=== PATIENT | male | born 1985 | race African-American/Black ===

== ENCOUNTER 2022-01-21 15:02 | Emergency (ER) | payer MEDICARE, MEDICAID, SELFPAY ==
[2022-01-21 15:27] VITALS: BP 145/76; PULSE 94; RESP 22; TEMP 36.7; O2SAT 100
[2022-01-21 15:52] LABS: Amorphous Sediment Urine 3+; RBC Urine None Seen (0-5/HPF); WBC Urine None Seen (0-5/HPF)
[2022-01-21 15:53] LABS: Bacteria Urine None Seen; Culture Indicated Urine Cult Not Indicated
--- NOTE | 2022-01-21 18:57 | ED_ITS ---
HPI - Skin/Abscess/Foreign Bdy <Reddy Matias PA-C - Last Filed: 01/21/22 19:46> General Chief complaint: Skin/Abscess/Foreign Body Stated complaint: COMPLICATION FROM MEDCATION FACE ISSUES VOMITING Time Seen by Provider: 01/21/22 18:57 Source: patient Mode of arrival: Wheelchair History of Present Illness HPI narrative: 36-year-old male with past medical history presents to the ED with 1 day of facial rash. Patient states that he was started on Suboxone for muscular pain due to cerebral palsy, after his 1st does started developing a itching, burning rash on the lower half of his face bilaterally. Patient denies throat swelling, trouble breathing, shortness of breath, wheezing, nausea, vomiting, abdominal pain. Patient was seen at [facility] earlier today for the same complaint, steroid cream was applied to his face and he was discharged. Patient states that his symptoms have not improved since then. Patient is also almost NPO with a G tube due to his cerebral palsy, and is unable to take p.o. medications. Related Data Previous Rx's Medication Instructions Recorded prednisone 20 mg tablet 40 mg PO DAILY 5 Days #10 tab 01/21/22 Review of Systems <Reddy Matias PA-C - Last Filed: 01/21/22 19:46> Review of Systems ROS Unobtainable: All systems reviewed & are unremarkable except as noted in HPI and below Constitutional Constitutional: Denies chills, Denies fatigue, Denies fever(s), Denies frequent falls, Denies lethargy and Denies weakness Eyes Eyes: Denies change in vision, Denies eye discharge, Denies irritation and Denies loss of vision ENT Ears, Nose, Mouth, and Throat: Denies change in voice, Denies dizziness, Denies neck pain, Denies sore throat and Denies throat swelling Cardiovascular Cardiovascular: Denies chest pain, Denies irregular heart rhythm, Denies lightheadedness, Denies palpitations, Denies dyspnea, Denies dyspnea on exertion and Denies orthopnea Respiratory Respiratory: Denies cough, Denies dyspnea, Denies dyspnea on exertion and Denies wheezing Gastrointestinal Gastrointestinal: Denies abdominal pain, Denies change in bowel habits, Denies diarrhea, Denies nausea and Denies vomiting Genitourinary Genitourinary: Denies hematuria, Denies flank pain, Denies urinary incontinence and Denies urinary urgency Musculoskeletal Musculoskeletal: Denies back pain, Denies muscle weakness, Denies neck pain, Denies numbness and Denies tingling Integumentary/Breasts Skin/Breast: Denies pruritus, Denies erythema, Reports rash and Denies wounds Neurologic Neurologic: Denies behavioral changes, Denies confusion, Denies dizziness, Denies frequent falls, Denies loss of vision, Denies numbness, Denies tingling and Denies weakness Psychiatric Psychiatric: Denies anxiety, Denies behavioral changes, Denies confusion, Denies depression, Denies homicidal ideation and Denies suicidal ideation Endocrine Endocrine: Denies fatigue, Denies flushing and Denies palpitations Hematologic/Lymphatic Hematologic/Lymphatic: Denies easy bruising Allergic/Immunologic Allergic/Immunologic: Denies urticaria, Denies throat swelling and Denies wheezing Patient History <Reddy Matias PA-C - Last Filed: 01/21/22 19:46> Social History Smoking Status: Current every day smoker Smoking Status: Current every day smoker Exam <Reddy Matias PA-C - Last Filed: 01/21/22 19:46> Initial Vital Signs Initial Vital Signs: Vital Signs Temperature 98.1 F 01/21/22 15:27 Pulse Rate 94 H 01/21/22 15:27 Respiratory Rate 22 01/21/22 15:27 Blood Pressure 145/76 H 01/21/22 15:27 Pulse Oximetry 100 01/21/22 15:27 Const General: cooperative, healthy appearing and comfortable [facility] Head: normal to inspection and normocephalic Ears: hearing grossly normal bilaterally Nose: external nose normal Face and sinus: normal facial exam Mouth: oral mucosae normal Teeth and gingiva: poor dentition Throat: posterior oropharynx normal Neck Neck: normal visual inspection and full ROM Resp Effort & Inspection: normal respiratory effort Auscultation: clear to auscultation bilaterally Cardio Rate: regular rate Rhythm: regular rhythm GI Palpation: soft Skin Other: Lower half of the phase with mild erythema, scaling. No signs of infection. Oral mucosa appears normal. Poor dentition Neuro General: patient alert, patient awake and patient oriented x3 Other: Patient is wheelchair-bound due to cerebral palsy which is baseline Psych Appearance: grossly normal Mental Status: mental status grossly normal <Sis Botnick, DO - Last Filed: 01/23/22 08:00> Initial Vital Signs Initial Vital Signs: Vital Signs Temperature 98.1 F 01/21/22 15:27 Pulse Rate 94 H 01/21/22 15:27 Respiratory Rate 22 01/21/22 15:27 Blood Pressure 145/76 H 01/21/22 15:27 Pulse Oximetry 100 01/21/22 15:27 Course <Reddy Matias PA-C - Last Filed: 01/21/22 19:46> Orders Ordered: Discontinued Medications Dexamethasone (Dexamethasone 10 Mg/Ml Vial) 20 mg INJ INTRA-OP ONE Stop: 01/21/22 19:12 Last Admin: 01/21/22 19:38 Dose: Not Given Documented by: CINDY Vital Signs Vital signs: Vital Signs - 8 hr 01/21/22 15:27 Temperature 98.1 F Pulse Rate 94 H Respiratory Rate 22 Blood Pressure 145/76 H Pulse Oximetry 100 <Sis Claros DO - Last Filed: 01/23/22 08:00> Orders Ordered: Discontinued Medications Dexamethasone (Dexamethasone 10 Mg/Ml Vial) 20 mg INJ INTRA-OP ONE Stop: 01/21/22 19:12 Last Admin: 01/21/22 19:38 Dose: Not Given Documented by: CINDY Vital Signs Vital signs: Vital Signs - 8 hr 01/21/22 15:27 Temperature 98.1 F Pulse Rate 94 H Respiratory Rate 22 Blood Pressure 145/76 H Pulse Oximetry 100 MDM - Skin/Abscess/Foreign Bdy <TIAN Chapman Last Filed: 01/21/22 19:46> Lab Data Labs: Lab Results 01/21/22 Range/Units 15:15 Urine RBC None seen (0-5/HPF) Urine WBC None seen (0-5/HPF) Amorphous Sediment 3+ Urine Bacteria None seen (None) Ur Culture Indicated? Cult not indicated Urine Dip Bedside Urine Glucose Negative Bedside Urine Bilirubin - Negative Bedside Urine Ketone - Negative Urine Specific [place] 1.010 Bedside Urine Occult Blood - Negative Bedside Urine pH 7.5 Bedside Urine Protein - Negative Bedside Urine Urobilinogen 0.2 Bedside Urine Nitrite - Negative Bedside Urine Leukocytes +/- 15 Esterase MDM Narrative Medical decision making narrative: 36-year-old male with past medical history presents to the ED with 1 day of facial rash. Concern for allergic reaction versus rash. Will treat with IM inj ection of dexamethasone. Patient will follow-up with his PCP tomorrow. ED return precautions discussed with patient. Patient verbalizes understanding. <Sis Claros DO - Last Filed: 01/23/22 08:00> Lab Data Labs: Lab Results 01/21/22 Range/Units 15:15 Urine RBC None seen (0-5/HPF) Urine WBC None seen (0-5/HPF) Amorphous Sediment 3+ Urine Bacteria None seen (None) Ur Culture Indicated? Cult not indicated Urine Dip Bedside Urine Glucose Negative Bedside Urine Bilirubin - Negative Bedside Urine Ketone - Negative Urine Specific [place] 1.010 Bedside Urine Occult Blood - Negative Bedside Urine pH 7.5 Bedside Urine Protein - Negative Bedside Urine Urobilinogen 0.2 Bedside Urine Nitrite - Negative Bedside Urine Leukocytes +/- 15 Esterase Discharge Plan Departure Patient Disposition: Home Clinical Impression: Rash Instructions: DI for Rash Activity Restrictions/Additional Instructions: You were evaluated for a facial rash following a dose of Suboxone. It is likely that your symptoms were caused due to an allergic reaction. You may take the prednisone for your symptoms. Please follow-up with your PCP as soon as possible. Please discontinue the Suboxone. Return to the ED if you have any trouble breathing, throat tightness, throat swelling, wheezing, nausea, vomiting. Prescriptions: New prednisone 20 mg tablet 40 mg PO DAILY 5 Days Qty: 10 0RF <Sis Claros DO - Last Filed: 01/23/22 08:00> Cosign ED Attending Atul Attestation: I was immediately available in the department for consultation. Documentation has been reviewed. I agree with assessment and plan.
== END 2022-01-21 19:55 | disposition home or self-care (01) ==
PROVIDERS: Emergency Medicine; Emergency Provider Student in an Organized Health Care Education/Training Program
DX: R21 Rash and other nonspecific skin eruption (principal); F17.200 Nicotine dependence, unspecified, uncomplicated
CPT/HCPCS: 81003; 81015; 99281; 99282

== ENCOUNTER 2024-08-12 13:45 | Outpatient (RCR) | payer MEDICARE, MEDICAID, SELFPAY ==
--- NOTE | 2024-02-04 15:45 | OT.OP.EVAL ---
Visit Care Team Role Provider Type TRACY Cano Attending Provider Non-Staff Family Provider Primary Care Provider Referring Provider Specialty: Nursing Address: [facility] [address], [place], [address] Email: Occupational Therapy Initial Evaluation OT Outpatient Adult Evaluation Start: 02/05/24 07:45 Freq: Status: Active Protocol: Document 02/04/24 15:45 AMS (Rec: 02/05/24 08:20 AMS [id number]) General Information - Adult Visit Number 10/01; 10/10; 19 visits -> KX 20th visit Plan of Care Dates 02/04/24 - 03/17/24 Insurance Information Medicare; KX modifier after 19 visits PCY Visit Start Time 10:30 Visit Stop Time 11:25 Treatment Setting Outpatient Care Note Type Initial Evaluation Referring Physician MABEL Cano Reason for Referral Cerebral palsy Precautions None listed Identification Confirmed Yes Goals Real Estate Legal Assistant Goals 1. Mynor will be modified independent with home exercise program utilizing provided written and visual instructions as needed. Assessment/Plan Treatment Assessment Hernan ('Mynor' or 'Wheels') is 38 y.o.; he was referred to OT by family nurse practitioner for cerebral palsy and to address sensory processing. Medical history is significant for: paraplegia; anxiety; ADD/ADHD; memory loss/dementia ; depression; dizziness; falls ; hearing problems; back/neck/ jaw pain; neuropathy; seizures ; ASD; TBI/concussion; vision problems; sensory modulation disorder. He reports h/o falls and pressure sores. Medications prescribed are for pain and to address tone/ rigidity. Whole Body Pain Assessment Grid completed; indication of 8 out of 10 on the pain scale relative to lower extremities and trunk. Wrist/Hand Pain Assessment Grid completed; indication of 10 out of 10 on the pain scale relative to dorsal/volar surfaces of both hands/wrists. QuickDASH UE Outcome Measure Score = 84.09. QuickDASH Work Module Score (Knitting Teacher Volunteer; walking service dog ) = 75.00. QuickDASH Sports/ Performing Arts Module Score ( Percussion Musician Dystonion) = 100.00. Mynor has an electric w/c; he also has a light/titanium based manual w/c; he presented in reported Proxamaaner manual w/c . Mynor has 65 cm yoga/therapy ball (x 2), sensory clouds ( crash pads), peanutballs, and a rainbow swing from [facility]. He has a smart home set-up thru [facility] for lighting. He is seeking smart home set-up for entering and exiting the home . He is ambidexturous; he uses R hand for manuevering judie stick of electric w/c; L hand for handwriting and for holding leash for walking of therapy dog. He indicated that he needs varying degrees of assist in the home (sometimes no assist, other times max assist); he denied having any assist/caregivers. He does have a shower chair and has interest in andrew development. He uses paratransit and has interest in hippotherapy. He presented in barefoot toe shoes, although, they did not fit onto heels. Foundry Process Engineer strength of R hand obtained w/ elbow ext, forearm pronation = 32.0# of force; executive kitchen manager strength of L hand obtained w/ elbow ext, forearm in neutral = 3.0# of force. Able to transfer to peanutball w/ SBA w/ use of TT to support maintenance of balance; reliance on UEs w/ sitting balance without feet resting on floor. Further assessment is needed in order to establish appropriate goals . Length of treatment (weeks) 6 Plan of Care Start Date 02/04/24 Plan of Care End Date 03/17/24 Treatment Frequency Once a Week Therapeutic Contents Active Range of Motion, Adaptive Equipment Education, Functional Activities,Home Exercise Program,Joint Protection,Manual Therapy, Education,Neurodevelopment Treatment,Neuromuscular Re- Education,Self-Care,Stretching /Flexibility Activities, Therapeutic Activities, Therapeutic Exercises
--- NOTE | 2024-02-09 15:53 | OT.OP.TRT ---
Visit Care Team Role Provider Type TRACY Cano Attending Provider Non-Staff Family Provider Primary Care Provider Referring Provider Specialty: Nursing Address: [facility] [address], [place], [address] Email: Occupational Therapy Treatment Note OT Outpatient Treatment Note - Adult Start: 02/05/24 07:45 Freq: Status: Active Protocol: Document 02/09/24 15:40 AMS (Rec: 02/09/24 15:53 AMS [id number]) OT Outpatient Adult Treatment Note Session Time Visit Start Time 13:48 Visit Stop Time 14:28 Visit Information Visit Number 11/01; 11/10; 19 visits -> KX 20th visit Plan of Care Dates 02/04/24 - 03/17/24 Insurance Information Medicare; KX modifier after 19 visits PCY Setting Treatment Setting Outpatient Care Visit Type Note Type Treatment Note General Information General Information Hernan ('Mynor' or 'Wheels') is 38 y.o.; he was referred to OT by family nurse practitioner for cerebral palsy and to address sensory processing. Medical history is significant for: paraplegia; anxiety; ADD/ADHD; memory loss/dementia ; depression; dizziness; falls ; hearing problems; back/neck/ jaw pain; neuropathy; seizures ; ASD; TBI/concussion; vision problems; sensory modulation disorder. He reports h/o falls and pressure sores. - Subjective Identification Type Name Observations 'Mynor'/'Wheels' presented in [email or web address] w/c. R handed control - Objective Objective Measurements Please refer to below for progress towards established OT goals: R side tone fluctuations. Apprenticeship Representative Goals 1. Mynor will be modified independent with home exercise program utilizing provided written and visual instructions as needed. - Treatment 1 Descriptor ROM/Sensory feedback. Peanutball. Sea-stars. Red bolster swing. Red bolster at mat level. - Assessment Assessment of Improvement 'Mynor' reported that he executes ROM exercises 2-15 times per day depending on tone. He presented in [email or web address] w/c; R handed control w/ pressure relief. Report of broken cup boswell, broken lap table attachment and need for head cushion to be fixed. Fluctuating tone of the L side of body. No change in positioning of UEs related to turning of head; primarily head turn to R noted. Able to assist w/ positioning of R LE into abduction in order to sit on red bolster. Inconsistent w/ weight bearing; increased weight bearing thru L UE. (-) ranging of UE's above 90 degrees w/ flex or abduction observed within functional changes in position. - Plan Therapy Recommendations Advance per Rehabilitation Protocol
--- NOTE | 2024-02-18 16:00 | OT.OP.TRT ---
Visit Care Team Role Provider Type TRACY Cano Attending Provider Non-Staff Family Provider Primary Care Provider Referring Provider Specialty: Nursing Address: [facility] [address], [place], [address] Email: Occupational Therapy Treatment Note OT Outpatient Treatment Note - Adult Start: 02/05/24 07:45 Freq: Status: Active Protocol: Document 02/18/24 16:00 AMS (Rec: 02/19/24 10:39 AMS [id number]) OT Outpatient Adult Treatment Note Session Time Visit Start Time 11:18 Visit Stop Time 11:58 Visit Information Visit Number 11/01; 11/10; 19 visits -> KX 20th visit Plan of Care Dates 02/04/24 - 03/17/24 Insurance Information Medicare; KX modifier after 19 visits PCY Setting Treatment Setting Outpatient Care Visit Type Note Type Treatment Note General Information General Information Hernan ('Mynor' or 'Wheels') is 38 y.o.; he was referred to OT by family nurse practitioner for cerebral palsy and to address sensory processing. Medical history is significant for: paraplegia; anxiety; ADD/ADHD; memory loss/dementia ; depression; dizziness; falls ; hearing problems; back/neck/ jaw pain; neuropathy; seizures ; ASD; TBI/concussion; vision problems; sensory modulation disorder. He reports h/o falls and pressure sores. - Subjective Identification Type Name Observations 'Mynor'/'Wheels' presented in [employer] w/c. R handed control - Objective Objective Measurements Please refer to below for progress towards established OT goals: R side tone fluctuations. Down Filler Goals 1. Myonr will be modified independent with home exercise program utilizing provided written and visual instructions as needed. - Treatment 1 Descriptor ROM/Sensory feedback. Peanutball. Red bolster swing. Red bolster at mat level. Yoga ball. - Assessment Assessment of Improvement 'Mynor' reported that he executes ROM exercises 2-15 times per day depending on tone. He presented in [employer] w/c; R handed control w/ pressure relief. Report of broken cup boswell, broken lap table attachment and need for head cushion to be fixed. Fluctuating tone of the R side of body impacting functional movements; R LE scissoring L LE in tall kneeling w/ use of large peanutball w/ rotation R hip. No change in positioning of UEs related to turning of head ; primarily head turn to R noted. (-) ranging of UE's above 90 degrees w/ flex or abduction observed within functional changes in position . Would like to collaborate w/ outpatient w/c specialist. - Plan Therapy Recommendations Advance per Rehabilitation Protocol
--- NOTE | 2024-02-25 14:03 | OT.OP.TRT ---
Visit Care Team Role Provider Type TRACY Cano Attending Provider Non-Staff Family Provider Primary Care Provider Referring Provider Specialty: Nursing Address: [facility] [address], [place], [address] Email: Occupational Therapy Treatment Note OT Outpatient Treatment Note - Adult Start: 02/05/24 07:45 Freq: Status: Active Protocol: Document 02/25/24 13:55 AMS (Rec: 02/25/24 14:03 AMS [id number]) OT Outpatient Adult Treatment Note Session Time Visit Start Time 11:25 Visit Stop Time 11:58 Visit Information Visit Number 11/29; 12/08; 19 visits -> KX visit Plan of Care Dates 02/04/24 - 03/17/24 Insurance Information Medicare; KX modifier after 19 visits PCY Setting Treatment Setting Outpatient Care Visit Type Note Type Treatment Note General Information General Information Hernan ('Mynor' or 'Wheels') is 38 y.o.; he was referred to OT by family nurse practitioner for cerebral palsy and to address sensory processing. Medical history is significant for: paraplegia; anxiety; ADD/ADHD; memory loss/dementia ; depression; dizziness; falls ; hearing problems; back/neck/ jaw pain; neuropathy; seizures ; ASD; TBI/concussion; vision problems; sensory modulation disorder. He reports h/o falls and pressure sores. - Subjective Identification Type Name Observations (-) locking of bilateral manual w/c breaks prior to transfer out of w/c. Hernan was accompanied by Rice, a friend. Has standard, manual w/c. No difficulties observed w/ gripping wheels in order to propel. Efficient and symmetrical bilateral grasping and propulsion of wheels of manual w/c. Increased difficulty locking R w/c break . Has personal electric w/c. R handed control. - Objective Objective Measurements Please refer to below for progress towards established OT goals: R side tone fluctuations. Nursing Home Goals 1. Mynor will be modified independent with home exercise program utilizing provided written and visual instructions as needed. - Treatment 1 Descriptor ROM/Sensory feedback. Peanutball. Red bolster swing. Red bolster at mat level. Yoga ball. - Assessment Assessment of Improvement 'Mynor' reported that he executes ROM exercises 2-15 times per day depending on tone. Presented in personal manual w/c. Efficient and symmetrical bilateral grasping and propulsion of wheels of manual w/c; increased difficulty locking R w/c break . Hernan verbalized awareness of difficulty w/ locking of R w/c break. Fluctuating tone of primarily R side of body (-) R LE scissoring L LE in tall kneeling noted w/ use of large peanutball. Inconsistencies w / UE and LE tone noted w/ changing of positions. 'Mynor' or 'Wheels' would like to collaborate w/ outpatient w/c specialist. - Plan Therapy Recommendations Advance per Rehabilitation Protocol
--- NOTE | 2024-03-03 12:24 | OT.OP.TRT ---
Visit Care Team Role Provider Type TRACY Cano Attending Provider Non-Staff Family Provider Primary Care Provider Referring Provider Specialty: Nursing Address: [facility] [address], [place], [address] Email: Occupational Therapy Treatment Note OT Outpatient Treatment Note - Adult Start: 02/05/24 07:45 Freq: Status: Active Protocol: Document 03/03/24 12:18 AMS (Rec: 03/03/24 12:24 AMS [id number]) OT Outpatient Adult Treatment Note Session Time Visit Start Time 11:15 Visit Stop Time 11:58 Visit Information Visit Number 12/30; 01/08; 19 visits -> KX 20th visit Plan of Care Dates 02/04/24 - 03/17/24 Insurance Information Medicare; KX modifier after 19 visits PCY Setting Treatment Setting Outpatient Care Visit Type Note Type Treatment Note General Information General Information Hernan ('Mynor' or 'Wheels') is 38 y.o.; he was referred to OT by family nurse practitioner for cerebral palsy and to address sensory processing. Medical history is significant for: paraplegia; anxiety; ADD/ADHD; memory loss/dementia ; depression; dizziness; falls ; hearing problems; back/neck/ jaw pain; neuropathy; seizures ; ASD; TBI/concussion; vision problems; sensory modulation disorder. He reports h/o falls and pressure sores. - Subjective Identification Type Name Observations (-) locking of bilateral manual w/c breaks prior to transfer out of w/c. Hernan was accompanied by Rice, a friend. Has standard, manual w/c. No difficulties observed w/ gripping wheels in order to propel. Efficient and symmetrical bilateral grasping and propulsion of wheels of manual w/c. Increased difficulty locking R w/c break . Has personal electric w/c. R handed control. - Objective Objective Measurements Please refer to below for progress towards established OT goals: R side tone fluctuations. Group Home Goals 1. Mynor will be modified independent with home exercise program utilizing provided written and visual instructions as needed. - Treatment 1 Descriptor ROM/Sensory feedback. Peanutball. Red bolster swing. Red bolster at mat level. Yoga ball. - Assessment Assessment of Improvement 'Mynor' reported that he executes ROM exercises 2-15 times per day depending on tone. Presented in personal manual w/c. Efficient and symmetrical bilateral grasping and propulsion of wheels of manual w/c; decreased ability to effectively lock R w/c brake of manual w/c; clinician assist for stabilizing w/c w/ transfer from floor -> w/c. Fluctuating tone of primarily R side of body (-) R LE scissoring L LE in tall kneeling noted w/ use of yoga ball. Inconsistencies w/ UE and LE tone noted w/ changing of positions. Contralateral UE stabilization on arm rest w/ balloon; observed to hit balloon w/ dorsum of hand/ wrist and palmar surface bilaterally. (-) ability to weight shift L -> R weight shift prone on ball; positioning of R wrist in flexion w/ attempt. Trialed frontal positioning of bolster for active B UE weight bearing; unsuccessful w/ this activity ('Mynor' denied ability to motor execute plan elbow flex/ext w/ body in this position). 'Mynor' or 'Wheels' would like to collaborate w/ outpatient w/c specialist. - Plan Therapy Recommendations Advance per Rehabilitation Protocol
--- NOTE | 2024-03-10 13:01 | OT.OP.TRT ---
Visit Care Team Role Provider Type TRACY Cano Attending Provider Non-Staff Family Provider Primary Care Provider Referring Provider Specialty: Nursing Address: [facility] [address], [place], [address] Email: Occupational Therapy Treatment Note OT Outpatient Treatment Note - Adult Start: 02/05/24 07:45 Freq: Status: Active Protocol: Document 03/10/24 12:56 AMS (Rec: 03/10/24 13:01 AMS [id number]) OT Outpatient Adult Treatment Note Session Time Visit Start Time 11:15 Visit Stop Time 11:58 Visit Information Visit Number 01/29; 02/07; visits -> KX 20th visit Plan of Care Dates 02/04/24 - 03/17/24 Insurance Information Medicare; KX modifier after 19 visits PCY Setting Treatment Setting Outpatient Care Visit Type Note Type Treatment Note General Information General Information Hernan ('Mynor' or 'Wheels') is 38 y.o.; he was referred to OT by family nurse practitioner for cerebral palsy and to address sensory processing. Medical history is significant for: paraplegia; anxiety; ADD/ADHD; memory loss/dementia ; depression; dizziness; falls ; hearing problems; back/neck/ jaw pain; neuropathy; seizures ; ASD; TBI/concussion; vision problems; sensory modulation disorder. He reports h/o falls and pressure sores. - Subjective Identification Type Name Observations Hernan was accompanied by Rice, a friend. Has standard, manual w/c. No difficulties observed w/ gripping wheels in order to propel. Efficient and symmetrical bilateral grasping and propulsion of wheels of manual w/c. Increased difficulty locking R w/c break . Has personal electric w/c. R handed control. - Objective Objective Measurements Please refer to below for progress towards established OT goals: R side tone fluctuations. Wine Bottle Inspector Goals 1. Mynor will be modified independent with home exercise program utilizing provided written and visual instructions as needed. - Treatment 1 Descriptor ROM/Sensory feedback. Yoga ball. Cane. Suspended ball. - Assessment Assessment of Improvement 'Mynor' reported that he executes ROM exercises 2-15 times per day depending on tone. Presented in personal manual w/c. Efficient and symmetrical bilateral grasping and propulsion of wheels of manual w/c; decreased ability to effectively lock R w/c brake of manual w/c; clinician assist for stabilizing yoga ball w/ transfer from floor -> w/c. Fluctuating tone of primarily R side of body (-) R LE scissoring L LE in tall kneeling noted w/ use of yoga ball, yet, decreased anchoring of R knee to floor primarily between activities. Trialed WB w/ R hand grasping wrist; able to sustain R handed grasp in this position. Inconsistencies w/ sh flex in supported tall kneeling. Cueing to support bilateral coordination w/ crossing of midline modified cane balloon baseball. Good eye-hand coordination w/ balloon, bilateral cane, and suspended ball overall; increased reliance on R UE w/ suspended ball w/ resting of head on heel of L hand on ball; increased reliance on R UE likely influenced by objects/ positioning of self within environment. 'Mynor' or 'Wheels' would like to collaborate w/ outpatient w/c specialist. - Plan Therapy Recommendations Advance per Rehabilitation Protocol
--- NOTE | 2024-03-17 15:53 | OT.OPPOC ---
Physical, Occupational & Speech Therapy At [facility] Hernan Harvey [id number] 1985 Visit Care Team Role Provider Type TRACY Cano Attending Provider Non-Staff Family Provider Primary Care Provider Referring Provider Address: [facility] [address], [place], [address] Occupational Therapy Plan of Care OT Outpatient Adult Evaluation Start: 02/05/24 07:45 Freq: Status: Active Protocol: Document 02/04/24 15:45 AMS (Rec: 02/05/24 08:20 AMS [id number]) General Information - Adult Visit Information Visit Number 10/01; 10/10; 19 visits -> KX 20th visit Plan of Care Dates 02/04/24 - 03/17/24 Insurance Information Medicare; KX modifier after 19 visits PCY Session Time Visit Start Time 10:30 Visit Stop Time 11:25 Setting Treatment Setting Outpatient Care Visit Type Note Type Initial Evaluation Referral Referring Physician MABEL Cano Reason for Referral Cerebral palsy Precautions None listed Identification Identification Confirmed Yes Goals Mcfp Goals Mcfp Goals 1. Mynor will be modified independent with home exercise program utilizing provided written and visual instructions as needed. Assessment/Plan Assessment Treatment Assessment Hernan ('Mynor' or 'Wheels') is 38 y.o.; he was referred to OT by family nurse practitioner for cerebral palsy and to address sensory processing. Medical history is significant for: paraplegia; anxiety; ADD/ADHD; memory loss/dementia ; depression; dizziness; falls ; hearing problems; back/neck/ jaw pain; neuropathy; seizures ; ASD; TBI/concussion; vision problems; sensory modulation disorder. He reports h/o falls and pressure sores. Medications prescribed are for pain and to address tone/ rigidity. Whole Body Pain Assessment Grid completed; indication of 8 out of 10 on the pain scale relative to lower extremities and trunk. Wrist/Hand Pain Assessment Grid completed; indication of 10 out of 10 on the pain scale relative to dorsal/volar surfaces of both hands/wrists. QuickDASH UE Outcome Measure Score = 84.09. QuickDASH Work Module Score (Teacher Of The Deaf/Hard Of Hearing Volunteer; walking service dog ) = 75.00. QuickDASH Sports/ Performing Arts Module Score ( Percussion Musician Dystonion) = 100.00. Mynor has an electric w/c; he also has a light/titanium based manual w/c; he presented in reported loaner manual w/c . Mynor has 65 cm yoga/therapy ball (x 2), sensory clouds ( crash pads), peanutballs, and a rainbow swing from [facility]. He has a smart home set-up thru [facility] for lighting. He is seeking smart home set-up for entering and exiting the home . He is ambidexturous; he uses R hand for manuevering judie stick of electric w/c; L hand for handwriting and for holding leash for walking of therapy dog. He indicated that he needs varying degrees of assist in the home (sometimes no assist, other times max assist); he denied having any assist/caregivers. He does have a shower chair and has interest in andrew development. He uses paratransit and has interest in hippotherapy. He presented in barefoot toe shoes, although, they did not fit onto heels. Advertising Campaign Manager strength of R hand obtained w/ elbow ext, forearm pronation = 32.0# of force; retail special event associate strength of L hand obtained w/ elbow ext, forearm in neutral = 3.0# of force. Able to transfer to peanutball w/ SBA w/ use of TT to support maintenance of balance; reliance on UEs w/ sitting balance without feet resting on floor. Further assessment is needed in order to establish appropriate goals . Plan Length of treatment (weeks) 6 Plan of Care Start Date 02/04/24 Plan of Care End Date 03/17/24 Treatment Frequency Once a Week Therapeutic Contents Active Range of Motion, Adaptive Equipment Education, Functional Activities,Home Exercise Program,Joint Protection,Manual Therapy, Education,Neurodevelopment Treatment,Neuromuscular Re- Education,Self-Care,Stretching /Flexibility Activities, Therapeutic Activities, Therapeutic Exercises Functional Wrist/Hand Scan Hand Side Sensory Assessment Sensory Profile2 OT Outpatient Treatment Note - Adult Start: 02/05/24 07:45 Freq: Status: Active Protocol: Document 03/17/24 15:44 AMS (Rec: 03/17/24 15:53 AMS [id number]) OT Outpatient Adult Treatment Note Session Time Visit Start Time 14:40 Visit Stop Time 15:15 Visit Information Visit Number 03/01; 03/10; 19 visits -> KX 20th visit Plan of Care Dates 03/17/24 - 04/28/24 Insurance Information Medicare; KX modifier after 19 visits PCY Setting Treatment Setting Outpatient Care Visit Type Note Type Progress Note General Information General Information Hernan ('Mynor' or 'Wheelelaina') is 38 y.o.; he was referred to OT by family nurse practitioner for cerebral palsy and to address sensory processing. Medical history is significant for: paraplegia; anxiety; ADD/ADHD; memory loss/dementia ; depression; dizziness; falls ; hearing problems; back/neck/ jaw pain; neuropathy; seizures ; ASD; TBI/concussion; vision problems; sensory modulation disorder. He reports h/o falls and pressure sores. - Subjective Identification Type Name Observations Hernan was accompanied by Dwayne, a friend. Has standard, manual w/c. No difficulties observed w/ gripping wheels in order to propel. Efficient and symmetrical bilateral grasping and propulsion of wheels of manual w/c. Increased difficulty locking R w/c break . Has personal electric w/c. R handed control. - Objective Objective Measurements Please refer to below for progress towards established OT goals: R side tone fluctuations. Charrer Goals 1. Mynor will be modified independent with home exercise program utilizing provided written and visual instructions as needed. - Treatment 2 Descriptor TT swing 1 Descriptor ROM/Sensory feedback. Yoga ball. Cane. Suspended ball. - Assessment Assessment of Improvement 'Mynor' reported that he executes ROM exercises 2-15 times per day depending on tone. He demonstrates efficient and symmetrical bilateral grasping and propulsion of wheels of personal manual w/c; although, he has decreased ability to effectively lock R w/c brake of manual w/c (which the clinician also has difficulty locking). Fluctuating tone of primarily R side of body. Clinician has explored options available to Mynor for UE AROM, including via eye-hand coordination activities. Mynor has demonstrated good eye-hand coordination w/ balloon, bilateral cane, and suspended ball w/ some increased reliance on R UE w/ eye-hand coordination activities. Although, he has been somewhat inconsistent w/ bilateral sh flex and bilateral sh abduction above 90 degrees bilaterally. Did discuss tactile options given hypersensitivities/aversion to shaving. 'Mynor' or 'Wheels' would like to collaborate w/ outpatient w/c specialist; he would also like to collaborate w/ hospital-based jozef writers and/or rehabilitation director. Outpatient OT rec to explore any additional sensory concerns and to cont to explore UE ROM options. - Plan Therapy Recommendations Advance per Rehabilitation Protocol Comment 6 weeks Frequency of Treatment Once a Week Therapeutic Contents Active Range of Motion, Adaptive Equipment Education, Client Education,Functional Activities,Home Exercise Program,Neurodevelopment Treatment,Neuromuscular Re- Education,Self-Care,Stretching /Flexibility Activities, Therapeutic Activities, Therapeutic Exercises Electronically Signed by: Jeanine Palomares, OT 03/17/24 [id number] If you are in agreement with this Plan of Care, please return a signed and dated copy. I have reviewed this Plan of Care and certify that the skilled therapy services above are required to meet the patient?s needs. Physician Signature Date Printed Name and Credentials Clinical Instructor Signature Printed Name and Credentials
--- NOTE | 2024-03-24 15:46 | OT.OP.TRT ---
Visit Care Team Role Provider Type TRACY Cano Attending Provider Non-Staff Family Provider Primary Care Provider Referring Provider Specialty: Nursing Address: [facility] [address], [place], [address] Email: Occupational Therapy Treatment Note OT Outpatient Treatment Note - Adult Start: 02/05/24 07:45 Freq: Status: Active Protocol: Document 03/24/24 15:34 AMS (Rec: 03/24/24 15:46 AMS [id number]) OT Outpatient Adult Treatment Note Session Time Visit Start Time 14:30 Visit Stop Time 15:15 Visit Information Visit Number 03/31; 04/09; 19 visits -> KX 20th visit Plan of Care Dates 03/17/24 - 04/28/24 Insurance Information Medicare; KX modifier after 19 visits PCY Setting Treatment Setting Outpatient Care Visit Type Note Type Treatment Note General Information General Information Hernan ('Mynor' or 'Wheels') is 38 y.o.; he was referred to OT by family nurse practitioner for cerebral palsy and to address sensory processing. Medical history is significant for: paraplegia; anxiety; ADD/ADHD; memory loss/dementia ; depression; dizziness; falls ; hearing problems; back/neck/ jaw pain; neuropathy; seizures ; ASD; TBI/concussion; vision problems; sensory modulation disorder. He reports h/o falls and pressure sores. - Subjective Identification Type Name Observations Hernan was accompanied by Rice, a friend. Has standard, manual w/c. No difficulties observed w/ gripping wheels in order to propel. Efficient and symmetrical bilateral grasping and propulsion of wheels of manual w/c. Increased difficulty locking R w/c break . Has personal electric w/c. R handed control. - Objective Objective Measurements Please refer to below for progress towards established OT goals: R side tone fluctuations. Long-Term Goals 1. Mynor will be modified independent with home exercise program utilizing provided written and visual instructions as needed. - Treatment 2 Descriptor Sensory activities. Vestibular. Hammock swing. Peanutball. Eye-hand coordination. - Assessment Assessment of Improvement 'Mynor' reported that he executes ROM exercises 2-15 times per day depending on tone. He demonstrates efficient and symmetrical bilateral grasping and propulsion of wheels of personal manual w/c; although, he has decreased ability to effectively lock R w/c brake of manual w/c (which the clinician also has difficulty locking). He has been inconsistent w/ bilateral sh flex/sh abduction above 90 degrees. He demonstrated ability to transfer w/c <-> mat without assistance; he was also able to transfer from mat level <-> hammock swing w/ clinician only providing stabilization of swing. Mynor demonstrated flex/motor ability to execute L long lunge w/ peanutball without phys assist. 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 'Mynor' or 'Wheels' would like to collaborate w/ outpatient w /c specialist; he would also like to collaborate w/ hospital-based jozef writers and/or clinical rehabilitation coordinator. Outpatient OT rec to explore any additional sensory concerns and to cont to explore UE ROM options. - Plan Therapy Recommendations Advance per Rehabilitation Protocol
--- NOTE | 2024-04-01 15:25 | OT.OP.TRT ---
Visit Care Team Role Provider Type TRACY Cano Attending Provider Non-Staff Family Provider Primary Care Provider Referring Provider Specialty: Nursing Address: [facility] [address], [place], [address] Email: Occupational Therapy Treatment Note OT Outpatient Treatment Note - Adult Start: 02/05/24 07:45 Freq: Status: Active Protocol: Document 04/02/24 12:22 AMS (Rec: 04/02/24 12:26 AMS [id number]) OT Outpatient Adult Treatment Note Session Time Visit Start Time 13:45 Visit Stop Time 14:25 Visit Information Visit Number 05/01; 05/10; 19 visits -> KX 20th visit Plan of Care Dates 03/17/24 - 04/28/24 Insurance Information Medicare; KX modifier after 19 visits PCY Setting Treatment Setting Outpatient Care Visit Type Note Type Treatment Note General Information General Information Hernan ('Mynor' or 'Wheels') is 38 y.o.; he was referred to OT by family nurse practitioner for cerebral palsy and to address sensory processing. Medical history is significant for: paraplegia; anxiety; ADD/ADHD; memory loss/dementia ; depression; dizziness; falls ; hearing problems; back/neck/ jaw pain; neuropathy; seizures ; ASD; TBI/concussion; vision problems; sensory modulation disorder. He reports h/o falls and pressure sores. - Subjective Identification Type Name Observations Hernan was accompanied by Rice, a friend. Has standard, manual w/c. No difficulties observed w/ gripping wheels in order to propel. Efficient and symmetrical bilateral grasping and propulsion of wheels of manual w/c. Increased difficulty locking R w/c break . Has personal electric w/c. R handed control. - Objective Objective Measurements Please refer to below for progress towards established OT goals: R side tone fluctuations. Correction Goals 1. Mynor will be modified independent with home exercise program utilizing provided written and visual instructions as needed. - Treatment 2 Descriptor Sensory activities. Peanutball. Eye-hand coordination. - Assessment Assessment of Improvement 'Mynor' reported that he executes ROM exercises 2-15 times per day depending on tone. He demonstrates efficient and symmetrical bilateral grasping and propulsion of wheels of personal manual w/c; he demonstrates modified independence w/ transferring into and out of his manual w/c . He has been inconsistent w/ bilateral sh flex/sh abduction above 90 degrees; although, he was able to complete supine w/ retrieval of objects in supine. Mynor demonstrated flex/ motor ability to execute L long lunge w/ peanutball without phys assist. 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 'Mynor' or 'Wheels' would like to collaborate w/ outpatient w /c specialist; he would also like to collaborate w/ hospital-based jozef writers and/or director of rehabilitative services. Outpatient OT rec to explore any additional sensory concerns and to cont to explore UE ROM options. - Plan Therapy Recommendations Advance per Rehabilitation Protocol
--- NOTE | 2024-04-08 13:05 | OT.OP.TRT ---
Visit Care Team Role Provider Type TRACY Cano Attending Provider Non-Staff Family Provider Primary Care Provider Referring Provider Specialty: Nursing Address: [facility] [address], [place], [address] Email: Occupational Therapy Treatment Note OT Outpatient Treatment Note - Adult Start: 02/05/24 07:45 Freq: Status: Active Protocol: Document 04/08/24 13:00 AMS (Rec: 04/08/24 13:05 AMS [id number]) OT Outpatient Adult Treatment Note Session Time Visit Start Time 11:30 Visit Stop Time 12:00 Visit Information Visit Number /10; 05/10; 19 visits -> KX 20th visit Plan of Care Dates 03/17/24 - 04/28/24 Insurance Information Medicare; KX modifier after 19 visits PCY Setting Treatment Setting Outpatient Care Visit Type Note Type Treatment Note General Information General Information Hernan ('Mynor' or 'Wheels') is 38 y.o.; he was referred to OT by family nurse practitioner for cerebral palsy and to address sensory processing. Medical history is significant for: paraplegia; anxiety; ADD/ADHD; memory loss/dementia ; depression; dizziness; falls ; hearing problems; back/neck/ jaw pain; neuropathy; seizures ; ASD; TBI/concussion; vision problems; sensory modulation disorder. He reports h/o falls and pressure sores. - Subjective Identification Type Name Observations Hernan was accompanied by Rice, a friend. Has standard, manual w/c. No difficulties observed w/ gripping wheels in order to propel. Efficient and symmetrical bilateral grasping and propulsion of wheels of manual w/c. Increased difficulty locking R w/c break . Has personal electric w/c. R handed control. - Objective Objective Measurements Please refer to below for progress towards established OT goals: R side tone fluctuations. Fci Goals 1. Mynor will be modified independent with home exercise program utilizing provided written and visual instructions as needed. - Treatment 2 Descriptor Sensory activities. Orientation to midline. Weight shifting. Righting reactions. Eye-hand coordination/UE AROM. - Assessment Assessment of Improvement 'Mynor' reported that he executes ROM exercises 2-15 times per day depending on tone. He demonstrates efficient and symmetrical bilateral grasping and propulsion of wheels of personal manual w/c; he demonstrates modified independence w/ transferring into and out of his manual w/c . Intermittent cueing needed for locking of w/c brakes to support safe transfers. Demonstrates B UE shoulder flexion WFL; Mynor reports objects 'facilitate' UE ROM for him. Although, active sh abd/sh flex has been observed to fluctuate bilaterally w/ eye-hand coordination activities when prone on yoga ball or peanutball. Improved weight bearing thru hands/ fingers w/ use of 'balance disks' bilaterally while prone on yoga ball w/ L <-> R weight shifting vs without objects. Able to execute this activity w/ controlled movements w/ EO and EC. 'Mynor' or 'Wheels' would like to collaborate w/ outpatient w /c specialist; he would also like to collaborate w/ hospital-based jozef writers and/or clinical rehabilitation specialist. Outpatient OT rec to explore any additional sensory concerns and to cont to explore UE ROM options. - Plan Therapy Recommendations Advance per Rehabilitation Protocol
--- NOTE | 2024-04-13 15:49 | OT.OPPOC ---
Physical, Occupational & Speech Therapy At [facility] Hernan Harvey [id number] 1985 Visit Care Team Role Provider Type TRACY Cano Attending Provider Non-Staff Family Provider Primary Care Provider Referring Provider Address: [facility] [address], [place], [address] Occupational Therapy Plan of Care OT Outpatient Adult Evaluation Start: 02/05/24 07:45 Freq: Status: Active Protocol: Document 02/04/24 15:45 AMS (Rec: 02/05/24 08:20 AMS [id number]) General Information - Adult Visit Information Visit Number 10/01; 10/10; 19 visits -> KX 20th visit Plan of Care Dates 02/04/24 - 03/17/24 Insurance Information Medicare; KX modifier after 19 visits PCY Session Time Visit Start Time 10:30 Visit Stop Time 11:25 Setting Treatment Setting Outpatient Care Visit Type Note Type Initial Evaluation Referral Referring Physician MABEL Cano Reason for Referral Cerebral palsy Precautions None listed Identification Identification Confirmed Yes Goals Care Home Goals Care Home Goals 1. Mynor will be modified independent with home exercise program utilizing provided written and visual instructions as needed. Assessment/Plan Assessment Treatment Assessment Hernan ('Mynor' or 'Wheels') is 38 y.o.; he was referred to OT by family nurse practitioner for cerebral palsy and to address sensory processing. Medical history is significant for: paraplegia; anxiety; ADD/ADHD; memory loss/dementia ; depression; dizziness; falls ; hearing problems; back/neck/ jaw pain; neuropathy; seizures ; ASD; TBI/concussion; vision problems; sensory modulation disorder. He reports h/o falls and pressure sores. Medications prescribed are for pain and to address tone/ rigidity. Whole Body Pain Assessment Grid completed; indication of 8 out of 10 on the pain scale relative to lower extremities and trunk. Wrist/Hand Pain Assessment Grid completed; indication of 10 out of 10 on the pain scale relative to dorsal/volar surfaces of both hands/wrists. QuickDASH UE Outcome Measure Score = 84.09. QuickDASH Work Module Score (Sheet Metal Supervisor Volunteer; walking service dog ) = 75.00. QuickDASH Sports/ Performing Arts Module Score ( Percussion Musician Dystonion) = 100.00. Mynor has an electric w/c; he also has a light/titanium based manual w/c; he presented in reported loaner manual w/c . Mynor has 65 cm yoga/therapy ball (x 2), sensory clouds ( crash pads), peanutballs, and a rainbow swing from [facility]. He has a smart home set-up thru [employer] for lighting. He is seeking smart home set-up for entering and exiting the home . He is ambidexturous; he uses R hand for manuevering judie stick of electric w/c; L hand for handwriting and for holding leash for walking of therapy dog. He indicated that he needs varying degrees of assist in the home (sometimes no assist, other times max assist); he denied having any assist/caregivers. He does have a shower chair and has interest in andrew development. He uses paratransit and has interest in hippotherapy. He presented in barefoot toe shoes, although, they did not fit onto heels. Network Cable Installer strength of R hand obtained w/ elbow ext, forearm pronation = 32.0# of force; therapist speech strength of L hand obtained w/ elbow ext, forearm in neutral = 3.0# of force. Able to transfer to peanutball w/ SBA w/ use of TT to support maintenance of balance; reliance on UEs w/ sitting balance without feet resting on floor. Further assessment is needed in order to establish appropriate goals . Plan Length of treatment (weeks) 6 Plan of Care Start Date 02/04/24 Plan of Care End Date 03/17/24 Treatment Frequency Once a Week Therapeutic Contents Active Range of Motion, Adaptive Equipment Education, Functional Activities,Home Exercise Program,Joint Protection,Manual Therapy, Education,Neurodevelopment Treatment,Neuromuscular Re- Education,Self-Care,Stretching /Flexibility Activities, Therapeutic Activities, Therapeutic Exercises Functional Wrist/Hand Scan Hand Side Sensory Assessment Sensory Profile2 OT Outpatient Treatment Note - Adult Start: 02/05/24 07:45 Freq: Status: Active Protocol: Document 04/13/24 15:40 AMS (Rec: 04/13/24 15:46 AMS [id number]) OT Outpatient Adult Treatment Note Session Time Visit Start Time 11:30 Visit Stop Time 12:00 Visit Information Visit Number 10/01; 06/10; 19 visits -> KX 20th visit Plan of Care Dates 04/13/24 - 06/22/24 Insurance Information Medicare; KX modifier after 19 visits PCY Setting Treatment Setting Outpatient Care Visit Type Note Type Treatment Note General Information General Information Hernan ('Mynor' or 'Wheels') is 38 y.o.; he was referred to OT by family nurse practitioner for cerebral palsy and to address sensory processing. Medical history is significant for: paraplegia; anxiety; ADD/ADHD; memory loss/dementia ; depression; dizziness; falls ; hearing problems; back/neck/ jaw pain; neuropathy; seizures ; ASD; TBI/concussion; vision problems; sensory modulation disorder. He reports h/o falls and pressure sores. - Subjective Identification Type Name Observations Hernan was accompanied by Dwayne, a friend. Has z-vibe; has lycra tunnel w / 2 handles available at each opening to help facilitate navigation. Has squigz/larger size for home use. Has vibrating neck pillow. z-vibe and vibrating neck pillow helped regulation to permit shaving/cutting of hair. Has standard, manual w/c. No difficulties observed w/ gripping wheels in order to propel. Efficient and symmetrical bilateral grasping and propulsion of wheels of manual w/c. Increased difficulty locking R w/c break . Has personal electric w/c. R handed control. - Objective Objective Measurements Please refer to below for progress towards established OT goals: R side tone fluctuations. Care Home Goals 1. Mynor will be modified independent with home exercise program utilizing provided written and visual instructions as needed. - Treatment 2 Descriptor Sensory activities. Orientation to midline. Weight shifting. Righting reactions. Eye-hand coordination/UE AROM. - Assessment Assessment of Improvement 'Mynor' reported that he executes ROM exercises 2-15 times per day depending on tone. He demonstrates efficient and symmetrical bilateral grasping and propulsion of wheels of personal manual w/c; he demonstrates modified independence w/ transferring into and out of his manual w/c . Intermittent cueing needed for locking of w/c brakes to support safe transfers. Demonstrates B UE shoulder flexion and B UE shoulder abduction WFL; Mynor reports objects help 'facilitate' UE ROM for him. However, bilateral sh abd/sh flex has been observed to fluctuate w/ eye-hand coordination activities when prone and/or in modified sitting (noted to not position feet flat on floor; decreased hip flexion w / positioning of feet posterior to hips while seated on peanutball). UE hand coordination has also been observed to fluctuate within and between treatment sessions . Instruction on environmental and activity modification to support some trunk rotation to the left and right. 'Mynor' or 'Wheels' would like to collaborate w/ outpatient w /c specialist; he would also like to collaborate w/ hospital-based jozef writers and/or vocational rehabilitation teacher. Outpatient OT rec to explore any additional sensory concerns and to cont to explore UE ROM options. - Plan Therapy Recommendations Advance per Rehabilitation Protocol Comment 10 weeks Frequency of Treatment Once a Week Therapeutic Contents Active Range of Motion, Adaptive Equipment Education, Client Education,Functional Activities,Home Exercise Program,Joint Protection, Education,Neurodevelopment Treatment,Neuromuscular Re- Education,Self-Care,Stretching /Flexibility Activities, Therapeutic Activities, Therapeutic Exercises,Sensory Re-education Electronically Signed by: Jeanine Palomares, OT 04/13/24 0744 If you are in agreement with this Plan of Care, please return a signed and dated copy. I have reviewed this Plan of Care and certify that the skilled therapy services above are required to meet the patient?s needs. Physician Signature Date Printed Name and Credentials Clinical Instructor Signature Printed Name and Credentials
--- NOTE | 2024-04-21 16:06 | OT.OP.TRT ---
Visit Care Team Role Provider Type TRACY Cano Attending Provider Non-Staff Family Provider Primary Care Provider Referring Provider Specialty: Nursing Address: [facility] [address], [place], [address] Email: Occupational Therapy Treatment Note OT Outpatient Treatment Note - Adult Start: 02/05/24 07:45 Freq: Status: Active Protocol: Document 04/21/24 15:57 AMS (Rec: 04/21/24 16:06 AMS [id number]) OT Outpatient Adult Treatment Note Session Time Visit Start Time 14:35 Visit Stop Time 15:15 Visit Information Visit Number 11/01; 07/10; visits -> KX 20th visit Plan of Care Dates 04/13/24 - 06/22/24 Insurance Information Medicare; KX modifier after 19 visits PCY Setting Treatment Setting Outpatient Care Visit Type Note Type Treatment Note General Information General Information Hernan ('Mynor' or 'Wheels') is 38 y.o.; he was referred to OT by family nurse practitioner for cerebral palsy and to address sensory processing. Medical history is significant for: paraplegia; anxiety; ADD/ADHD; memory loss/dementia ; depression; dizziness; falls ; hearing problems; back/neck/ jaw pain; neuropathy; seizures ; ASD; TBI/concussion; vision problems; sensory modulation disorder. He reports h/o falls and pressure sores. - Subjective Identification Type Name Observations Hernan was accompanied by Rice, a friend. Has z-vibe; has lycra tunnel w / 2 handles available at each opening to help facilitate navigation. Has squigz/larger size for home use. Has vibrating neck pillow. z-vibe and vibrating neck pillow helped regulation to permit shaving/cutting of hair. Has standard, manual w/c. No difficulties observed w/ gripping wheels in order to propel. Efficient and symmetrical bilateral grasping and propulsion of wheels of manual w/c. Increased difficulty locking R w/c break . Has personal electric w/c. R handed control. - Objective Objective Measurements Please refer to below for progress towards established OT goals: R side tone fluctuations. Jail Goals 1. Mynor will be modified independent with home exercise program utilizing provided written and visual instructions as needed. - Treatment 2 Descriptor Sensory activities. Orientation to midline. Weight shifting. Righting reactions. Eye-hand coordination/UE AROM. - Assessment Assessment of Improvement 'Mynor' reported that he executes ROM exercises 2-15 times per day depending on UE tone. He demonstrates efficient and symmetrical bilateral grasping and propulsion of wheels of personal manual w/c; he demonstrates modified independence w/ transferring into and out of his manual w/c . Intermittent cueing needed for locking of w/c brakes to support safe transfers; able to approach 'locking brakes' using both hands. Demonstrates B UE shoulder flexion and B UE shoulder abduction WFL; Mynor reports objects help ' facilitate' UE ROM for him. Bilateral sh abd/sh flex has been observed to fluctuate w/ eye-hand coordination activities when prone and/or in modified sitting. Observed to have difficulty moving out of elbow ext w/ forearm pronation while prone on pball . UE hand coordination has also been observed to fluctuate within and between treatment sessions. 'Mynor' or 'Wheels' would like to collaborate w/ outpatient w /c specialist; he would also like to collaborate w/ hospital-based jozef writers and/or rehab aid. Outpatient OT rec to explore any additional sensory concerns and to cont to explore UE ROM options. - Plan Therapy Recommendations Advance per Rehabilitation Protocol
--- NOTE | 2024-04-29 15:59 | OT.OP.TRT ---
Visit Care Team Role Provider Type TRACY Cano Attending Provider Non-Staff Family Provider Primary Care Provider Referring Provider Specialty: Nursing Address: [facility] [address], [place], [address] Email: Occupational Therapy Treatment Note OT Outpatient Treatment Note - Adult Start: 02/05/24 07:45 Freq: Status: Active Protocol: Document 04/29/24 15:54 AMS (Rec: 04/29/24 15:58 AMS [id number]) OT Outpatient Adult Treatment Note Session Time Visit Start Time 14:37 Visit Stop Time 15:15 Visit Information Visit Number 11/29; 08/10; 19 visits -> KX 20th visit Plan of Care Dates 04/13/24 - 06/22/24 Insurance Information Medicare; KX modifier after 19 visits PCY Setting Treatment Setting Outpatient Care Visit Type Note Type Treatment Note General Information General Information Hernan ('Mynor' or 'Wheels') is 38 y.o.; he was referred to OT by family nurse practitioner for cerebral palsy and to address sensory processing. Medical history is significant for: paraplegia; anxiety; ADD/ADHD; memory loss/dementia ; depression; dizziness; falls ; hearing problems; back/neck/ jaw pain; neuropathy; seizures ; ASD; TBI/concussion; vision problems; sensory modulation disorder. He reports h/o falls and pressure sores. - Subjective Identification Type Name Observations Hernan was accompanied by Rice, a friend. Has z-vibe; has lycra tunnel w / 2 handles available at each opening to help facilitate navigation. Has squigz/larger size for home use. Has vibrating neck pillow. z-vibe and vibrating neck pillow helped regulation to permit shaving/cutting of hair. Has standard, manual w/c. No difficulties observed w/ gripping wheels in order to propel. Efficient and symmetrical bilateral grasping and propulsion of wheels of manual w/c. Increased difficulty locking R w/c break . Has personal electric w/c. R handed control. - Objective Objective Measurements Please refer to below for progress towards established OT goals: R side tone fluctuations. Nursing Home Goals 1. Mynor will be modified independent with home exercise program utilizing provided written and visual instructions as needed. - Treatment 2 Descriptor Sensory activities. Orientation to midline. Weight shifting. Righting reactions. Eye-hand coordination/UE AROM. - Assessment Assessment of Improvement 'Mynor' reported that he executes ROM exercises 2-15 times per day depending on UE tone. He demonstrates efficient and symmetrical bilateral grasping and propulsion of wheels of personal manual w/c; he demonstrates modified independence w/ transferring into and out of his manual w/c . Intermittent cueing needed for locking of w/c brakes to support safe transfers; able to approach 'locking brakes' using both hands. Demonstrates B UE shoulder flexion and B UE shoulder abduction WFL; Mynor reports objects help ' facilitate' UE ROM for him. Bilateral sh abd/sh flex has been observed to fluctuate w/ eye-hand coordination activities when prone and/or in modified sitting. Modified gonzalez bag toss to sliding on mat while prone; reported difficulty w/ bilateral active elbow ext when prone on ball w/ attempt at modified push- ups -> thus, rec prone walk- outs (which Mynor reports preference for visual targets via gonzalez bags). 'Mynor' or 'Wheels' would like to collaborate w/ outpatient w /c specialist; he would also like to collaborate w/ hospital-based jozef writers and/or rehabilitation worker. Outpatient OT rec to explore any additional sensory concerns and to cont to explore UE ROM options. - Plan Therapy Recommendations Advance per Rehabilitation Protocol
--- NOTE | 2024-05-06 16:00 | OT.OP.TRT ---
Visit Care Team Role Provider Type TRACY Cano Attending Provider Non-Staff Family Provider Primary Care Provider Referring Provider Specialty: Nursing Address: [facility] [address], [place], [address] Email: Occupational Therapy Treatment Note OT Outpatient Treatment Note - Adult Start: 02/05/24 07:45 Freq: Status: Active Protocol: Document 05/06/24 16:00 AMS (Rec: 05/07/24 10:32 AMS [id number]) OT Outpatient Adult Treatment Note Session Time Visit Start Time 14:45 Visit Stop Time 15:15 Visit Information Visit Number 12/30; 09/09; 19 visits -> KX 20th visit Plan of Care Dates 04/13/24 - 06/22/24 Insurance Information Medicare; KX modifier after 19 visits PCY Setting Treatment Setting Outpatient Care Visit Type Note Type Treatment Note General Information General Information Hernan ('Mynor' or 'Wheels') is 38 y.o.; he was referred to OT by family nurse practitioner for cerebral palsy and to address sensory processing. Medical history is significant for: paraplegia; anxiety; ADD/ADHD; memory loss/dementia ; depression; dizziness; falls ; hearing problems; back/neck/ jaw pain; neuropathy; seizures ; ASD; TBI/concussion; vision problems; sensory modulation disorder. He reports h/o falls and pressure sores. - Subjective Identification Type Name Observations Hernan was accompanied by Rice, a friend. Has z-vibe; has lycra tunnel w / 2 handles available at each opening to help facilitate navigation. Has squigz/larger size for home use. Has vibrating neck pillow. z-vibe and vibrating neck pillow helped regulation to permit shaving/cutting of hair. Has standard, manual w/c. No difficulties observed w/ gripping wheels in order to propel. Efficient and symmetrical bilateral grasping and propulsion of wheels of manual w/c. Increased difficulty locking R w/c break . Has personal electric w/c. R handed control. - Objective Objective Measurements Please refer to below for progress towards established OT goals: R side tone fluctuations. Longterm Goals 1. Mynor will be modified independent with home exercise program utilizing provided written and visual instructions as needed. - Treatment 2 Descriptor Sensory activities. Orientation to midline. Weight shifting. Righting reactions. Eye-hand coordination/UE AROM. - Assessment Assessment of Improvement 'Mynor' reported that he executes ROM exercises 2-15 times per day depending on UE tone. He demonstrates efficient and symmetrical bilateral grasping and propulsion of wheels of personal manual w/c; he demonstrates modified independence w/ transferring into and out of his manual w/c . Demonstrates B UE shoulder flexion and B UE shoulder abduction WFL; Mynor reports objects help 'facilitate' UE ROM for him. Bilateral sh abd/ sh flex has been observed to fluctuate w/ eye-hand coordination activities when prone and/or in modified sitting. Reported spasms intermittently w/ prone work on yoga ball primarily of the R LE. Able to reposition self within environment w/ yoga ball without support in kneeling (to change orientation L <-> R). Use of handles to support use of lycra tunnel w/ yoga ball for sensory input as requested. 'Mynor' or 'Wheels' would like to collaborate w/ outpatient w /c specialist; he would also like to collaborate w/ hospital-based jozef writers and/or restorative rehab aide. Outpatient OT rec to explore any additional sensory concerns and to cont to explore UE ROM options. - Plan Therapy Recommendations Advance per Rehabilitation Protocol
--- NOTE | 2024-05-12 15:47 | OT.OP.TRT ---
Visit Care Team Role Provider Type TRACY Cano Attending Provider Non-Staff Family Provider Primary Care Provider Referring Provider Specialty: Nursing Address: [facility] [address], [place], [address] Email: Occupational Therapy Treatment Note OT Outpatient Treatment Note - Adult Start: 02/05/24 07:45 Freq: Status: Active Protocol: Document 05/12/24 15:43 AMS (Rec: 05/12/24 15:47 AMS [id number]) OT Outpatient Adult Treatment Note Session Time Visit Start Time 14:40 Visit Stop Time 15:15 Visit Information Visit Number 01/29; ; 19 visits -> KX 20th visit Plan of Care Dates 04/13/24 - 06/22/24 Insurance Information Medicare; KX modifier after 19 visits PCY Setting Treatment Setting Outpatient Care Visit Type Note Type Treatment Note General Information General Information Hernan ('Mynor' or 'Wheels') is 38 y.o.; he was referred to OT by family nurse practitioner for cerebral palsy and to address sensory processing. Medical history is significant for: paraplegia; anxiety; ADD/ADHD; memory loss/dementia ; depression; dizziness; falls ; hearing problems; back/neck/ jaw pain; neuropathy; seizures ; ASD; TBI/concussion; vision problems; sensory modulation disorder. He reports h/o falls and pressure sores. - Subjective Identification Type Name Observations Hernan was accompanied by Rice, a friend. Has z-vibe; has lycra tunnel w / 2 handles available at each opening to help facilitate navigation. Has squigz/larger size for home use. Has vibrating neck pillow. z-vibe and vibrating neck pillow helped regulation to permit shaving/cutting of hair. Has standard, manual w/c. No difficulties observed w/ gripping wheels in order to propel. Efficient and symmetrical bilateral grasping and propulsion of wheels of manual w/c. Increased difficulty locking R w/c break . Has personal electric w/c. R handed control. - Objective Objective Measurements Please refer to below for progress towards established OT goals: R side tone fluctuations. Group Home Goals 1. Mynor will be modified independent with home exercise program utilizing provided written and visual instructions as needed. - Treatment 2 Descriptor Sensory activities. Orientation to midline. Weight shifting. Righting reactions. Eye-hand coordination/UE AROM. - Assessment Assessment of Improvement 'Mynor' reported that he executes ROM exercises 2-15 times per day depending on UE tone; Mynor reports objects help 'facilitate' UE ROM for him. He demonstrates efficient and symmetrical bilateral grasping and propulsion of wheels of personal manual w/c; he demonstrates modified independence w/ transferring into and out of his manual w/c although cueing intermittently for safety w/ locking of w/c brakes. Demonstrates B UE shoulder AROM WFL. Increased reliance on L UE/preferred L UE manipulation of objects w/ eye -hand coordination. Demonstrated ability to toss and catch gonzalez bag underhand w / L hand repetitively up to 5 trials successfully. B UE AROM has been observed to fluctuate w/ eye-hand coordination activities, as well as motor planning. Reported spasms intermittently w/ prone work on yoga ball primarily of the R LE and/or w / trunk rotation to the R. 'Mynor' or 'Wheels' would like to collaborate w/ outpatient w /c specialist; he would also like to collaborate w/ hospital-based jozef writers and/or rn cardiac rehab. Outpatient OT rec to explore any additional sensory concerns and to cont to explore UE ROM options. - Plan Therapy Recommendations Advance per Rehabilitation Protocol
--- NOTE | 2024-05-20 15:00 | OT.OP.TRT ---
Visit Care Team Role Provider Type TRACY Cano Attending Provider Non-Staff Family Provider Primary Care Provider Referring Provider Specialty: Nursing Address: [facility] [address], [place], [address] Email: Occupational Therapy Treatment Note OT Outpatient Treatment Note - Adult Start: 02/05/24 07:45 Freq: Status: Active Protocol: Document 05/20/24 14:51 AMS (Rec: 05/20/24 15:00 AMS [id number]) OT Outpatient Adult Treatment Note Session Time Visit Start Time 13:50 Visit Stop Time 15:30 Visit Information Visit Number 03/01; ; 19 visits -> KX 20th visit Plan of Care Dates 04/13/24 - 06/22/24 Insurance Information Medicare; KX modifier after 19 visits PCY Setting Treatment Setting Outpatient Care Visit Type Note Type Treatment Note General Information General Information Hernan ('Mynor' or 'Wheels') is 38 y.o.; he was referred to OT by family nurse practitioner for cerebral palsy and to address sensory processing. Medical history is significant for: paraplegia; anxiety; ADD/ADHD; memory loss/dementia ; depression; dizziness; falls ; hearing problems; back/neck/ jaw pain; neuropathy; seizures ; ASD; TBI/concussion; vision problems; sensory modulation disorder. He reports h/o falls and pressure sores. - Subjective Identification Type Name Observations Hernan was accompanied by Rice, a friend. He enjoys going to [employer]. Has peanutball. Has z-vibe; has lycra tunnel w/ 2 handles available at each opening to help facilitate navigation. Has squigz/larger size for home use. Has vibrating neck pillow. z-vibe and vibrating neck pillow helped regulation to permit shaving/cutting of hair. Has standard, manual w/c. No difficulties observed w/ gripping wheels in order to propel. Efficient and symmetrical bilateral grasping and propulsion of wheels of manual w/c. Increased difficulty locking R w/c break . Has personal electric w/c. R handed control. - Objective Objective Measurements Please refer to below for progress towards established OT goals: R side tone fluctuations. Concrete Bucket Hooker Goals 1. Mynor will be modified independent with home exercise program utilizing provided written and visual instructions as needed. - Treatment 2 Descriptor Sensory activities. Orientation to midline. Weight shifting. Righting reactions. Eye-hand coordination/UE AROM. - Assessment Assessment of Improvement 'Mynor' reported that he executes ROM exercises 2-15 times per day depending on UE tone; Mynor reports objects help 'facilitate' UE ROM for him. He demonstrates efficient and symmetrical bilateral grasping and propulsion of wheels of personal manual w/c; he demonstrates modified independence w/ transferring into and out of his manual w/c although cueing intermittently for safety w/ locking of w/c brakes. Demonstrates B UE shoulder AROM WFL. Increased reliance on L UE/preferred L UE manipulation of objects w/ eye -hand coordination. Fluctuating tone impacts particularly R side of body; impacted R UE motor planning in today's session w/ R sh ext , R IR, R elbow flex w/ tendency into R forearm pronation. Change in positioning of head/trunk did not influence motor coordination of R UE. Fluctuating tone can influence Mynor's day-to-day activities, including dressing and bathing . 'Mynor' or 'Wheels' would like to collaborate w/ outpatient w /c specialist; he would also like to collaborate w/ hospital-based jozef writers and/or rehabilitation coordinator. Outpatient OT rec to explore any additional sensory concerns and to cont to explore UE ROM options. - Plan Therapy Recommendations Advance per Rehabilitation Protocol
--- NOTE | 2024-06-02 15:30 | OT.OP.TRT ---
Visit Care Team Role Provider Type TRACY Cano Attending Provider Non-Staff Family Provider Primary Care Provider Referring Provider Specialty: Nursing Address: [facility] [address], [place], [address] Email: Occupational Therapy Treatment Note OT Outpatient Treatment Note - Adult Start: 02/05/24 07:45 Freq: Status: Active Protocol: Document 06/02/24 15:22 AMS (Rec: 06/02/24 15:30 AMS [id number]) OT Outpatient Adult Treatment Note Session Time Visit Start Time 13:15 Visit Stop Time 13:43 Visit Information Visit Number 03/31; ; visits -> KX 20th visit Plan of Care Dates 04/13/24 - 06/22/24 Insurance Information Medicare; KX modifier after 19 visits PCY Setting Treatment Setting Outpatient Care Visit Type Note Type Treatment Note General Information General Information Hernan ('Mynor' or 'Wheels') is 38 y.o.; he was referred to OT by family nurse practitioner for cerebral palsy and to address sensory processing. Medical history is significant for: paraplegia; anxiety; ADD/ADHD; memory loss/dementia ; depression; dizziness; falls ; hearing problems; back/neck/ jaw pain; neuropathy; seizures ; ASD; TBI/concussion; vision problems; sensory modulation disorder. He reports h/o falls and pressure sores. - Subjective Identification Type Name Observations Mynor reported that he had a catheter inserted the previous week; he is being followed by Urology at [facility]. Increased waking at night since catheter insertion. Rice = friend who frequently accompanies him. Enjoys karaoke. Has peanutball . Has z-vibe; has lycra tunnel w/ 2 handles available at each opening to help facilitate navigation. Has squigz/larger size for home use. Has vibrating neck pillow . z-vibe and vibrating neck pillow helped regulation to permit shaving/cutting of hair . h/o insomnia (since the age of 3). Has standard, manual w/ c. No difficulties observed w/ gripping wheels in order to propel. Efficient and symmetrical bilateral grasping and propulsion of wheels of manual w/c. Increased difficulty locking R w/c break . Has personal electric w/c. R handed control. - Objective Objective Measurements Please refer to below for progress towards established OT goals: R side tone fluctuations. Thinner Sprayer Goals 1. Mynor will be modified independent with home exercise program utilizing provided written and visual instructions as needed. - Treatment 2 Descriptor Sensory activities. Orientation to midline. Weight shifting. Righting reactions. Eye-hand coordination/UE AROM. - Assessment Assessment of Improvement 'Mynor' reported that he executes ROM exercises 2-15 times per day depending on UE tone; Mynor reports objects help 'facilitate' UE ROM for him. He demonstrates efficient and symmetrical bilateral grasping and propulsion of wheels of personal manual w/c; he demonstrates modified independence w/ transferring into and out of his manual w/c although cueing intermittently for safety w/ locking of w/c brakes. Demonstrates B UE shoulder AROM WFL. Increased reliance on L UE/preferred L UE manipulation of objects w/ eye -hand coordination. Fluctuating tone impacts particularly R side of body; slighlty impacted today's session. Use of peanutball. Able to manage 2.2#-4.4# spherical weighted balls w/ L hand without difficulty w/ sh flex/sh abd (rolling/throwing infront of body/to left of body). 'Mynor' or 'Wheels' would like to collaborate w/ outpatient w /c specialist; he would also like to collaborate w/ hospital-based jozef writers and/or rehabilitation case coordinator. Outpatient OT rec to explore any additional sensory concerns and to cont to explore UE ROM options. - Plan Therapy Recommendations Advance per Rehabilitation Protocol
--- NOTE | 2024-06-08 14:30 | OT.OP.TRT ---
Visit Care Team Role Provider Type TRACY Cano Attending Provider Non-Staff Family Provider Primary Care Provider Referring Provider Specialty: Nursing Address: [facility] [address], [place], [address] Email: Occupational Therapy Treatment Note OT Outpatient Treatment Note - Adult Start: 02/05/24 07:45 Freq: Status: Active Protocol: Document 06/08/24 14:30 AMS (Rec: 06/09/24 15:25 AMS [id number]) OT Outpatient Adult Treatment Note Session Time Visit Start Time 13:45 Visit Stop Time 14:30 Visit Information Visit Number 05/01; ; 19 visits -> KX 20th visit Plan of Care Dates 04/13/24 - 06/22/24 Insurance Information Medicare; KX modifier after 19 visits PCY Setting Treatment Setting Outpatient Care Visit Type Note Type Treatment Note General Information General Information Hernan ('Mynor' or 'Wheels') is 38 y.o.; he was referred to OT by family nurse practitioner for cerebral palsy and to address sensory processing. Medical history is significant for: paraplegia; anxiety; ADD/ADHD; memory loss/dementia ; depression; dizziness; falls ; hearing problems; back/neck/ jaw pain; neuropathy; seizures ; ASD; TBI/concussion; vision problems; sensory modulation disorder. He reports h/o falls and pressure sores. - Subjective Identification Type Name Observations Mynor is being followed by Urology at [facility]; report of wearing cath bag R LE. Rice = friend who frequently accompanies him. Enjoys karaoke. Has peanutball . Has z-vibe; has lycra tunnel w/ 2 handles available at each opening to help facilitate navigation. Has squigz/larger size for home use. Has vibrating neck pillow . z-vibe and vibrating neck pillow helped regulation to permit shaving/cutting of hair . h/o insomnia (since the age of 3). Has standard, manual w/ c. No difficulties observed w/ gripping wheels in order to propel. Efficient and symmetrical bilateral grasping and propulsion of wheels of manual w/c. Increased difficulty locking R w/c break . Has personal electric w/c. R handed control. - Objective Objective Measurements Please refer to below for progress towards established OT goals: R side tone fluctuations. Peoplesoft Administrator Goals 1. Mynor will be modified independent with home exercise program utilizing provided written and visual instructions as needed. - Treatment 2 Descriptor Sensory activities. Orientation to midline. Weight shifting. Righting reactions. Eye-hand coordination/UE AROM. - Assessment Assessment of Improvement 'Mynor' reported that he executes ROM exercises 2-15 times per day depending on UE tone; Mynor reports objects help 'facilitate' UE ROM for him. He demonstrates efficient and symmetrical bilateral grasping and propulsion of wheels of personal manual w/c; he demonstrates modified independence w/ transferring into and out of his manual w/c although cueing intermittently for safety w/ locking of w/c brakes. He demonstrates modified independence w/ transferring into and out of electric w/c. Demonstrates B UE shoulder AROM WFL. Increased reliance on L UE/preferred L UE manipulation of objects w/ eye -hand coordination. Fluctuating tone impacts particularly R side of body; c /o tone impacting his performance on x 2 occasions during today's session. Use of peanutball. Able to manage 5. 5# spherical weighted balls w/ L hand without difficulty w/ sh flex/sh abd (rolling/ throwing infront of body/to left of body). May want to integrate bolster swing based on feedback from Mynor. 'Mynor' or 'Wheels' would like to collaborate w/ outpatient w /c specialist; he would also like to collaborate w/ hospital-based jozef writers and/or rehabilitation supervisor. Outpatient OT rec to explore any additional sensory concerns and to cont to explore UE ROM options. - Plan Therapy Recommendations Advance per Rehabilitation Protocol
--- NOTE | 2024-06-15 14:02 | OT.OP.TRT ---
Visit Care Team Role Provider Type TRACY Cano Attending Provider Non-Staff Family Provider Primary Care Provider Referring Provider Specialty: Nursing Address: [facility] [address], [place], [address] Email: Occupational Therapy Treatment Note OT Outpatient Treatment Note - Adult Start: 02/05/24 07:45 Freq: Status: Active Protocol: Document 06/15/24 13:54 [facility] (Rec: 06/15/24 14:01 [facility] [id number]) OT Outpatient Adult Treatment Note Session Time Visit Start Time 13:00 Visit Stop Time 13:45 Visit Information Visit Number 06/01; ; 19 visits -> KX 20th visit Plan of Care Dates 04/13/24 - 06/22/24 Insurance Information Medicare; KX modifier after 19 visits PCY Setting Treatment Setting Outpatient Care Visit Type Note Type Treatment Note General Information General Information Hernan ('Mynor' or 'Wheels') is 38 y.o.; he was referred to OT by family nurse practitioner for cerebral palsy and to address sensory processing. Medical history is significant for: paraplegia; anxiety; ADD/ADHD; memory loss/dementia ; depression; dizziness; falls ; hearing problems; back/neck/ jaw pain; neuropathy; seizures ; ASD; TBI/concussion; vision problems; sensory modulation disorder. He reports h/o falls and pressure sores. - Subjective Identification Type Name Observations Mynor is being followed by Urology at [facility]. Wearing cath bag L LE. Mynor was accompanied by Rice to treatment session. Installation of smart controlled lighting system; verbalization of desire to remove all cabinet doors to increase ease of access to items within the kitchen; verbalization of desire to install smart lock system or similiar modification to front door to support ease of access to the home for himself , caregivers, family, friends, etc. Rice = friend who frequently accompanies him. Enjoys karaoke. Has peanutball . Has z-vibe; has lycra tunnel w/ 2 handles available at each opening to help facilitate navigation. Has squigz/larger size for home use. Has vibrating neck pillow . z-vibe and vibrating neck pillow helped regulation to permit shaving/cutting of hair . h/o insomnia (since the age of 3). Has standard, manual w/ c. No difficulties observed w/ gripping wheels in order to propel. Efficient and symmetrical bilateral grasping and propulsion of wheels of manual w/c. Increased difficulty locking R w/c break . Has personal electric w/c. R handed control. - Objective Objective Measurements Please refer to below for progress towards established OT goals: R side tone fluctuations. Lead Furnace Operator Goals 1. Mynor will be modified independent with home exercise program utilizing provided written and visual instructions as needed. - Treatment 2 Descriptor Sensory activities. Orientation to midline. Weight shifting. Righting reactions. Eye-hand coordination/UE AROM. - Assessment Assessment of Improvement 'Mynor' reported that he executes ROM exercises 2-15 times per day depending on UE tone; Mynor reports objects help 'facilitate' UE ROM for him. He demonstrates efficient and symmetrical bilateral grasping and propulsion of wheels of personal manual w/c; he demonstrates modified independence w/ transferring into and out of his manual w/c although cueing intermittently for safety w/ locking of w/c brakes. He demonstrates modified independence w/ transferring into and out of electric w/c. Demonstrates B UE shoulder AROM WFL. Increased reliance on L UE/preferred L UE manipulation of objects w/ eye -hand coordination. Fluctuating tone impacts particularly R side of body; no c/o tone impacting his performance on x 2 occasions during today's session. Use of peanutball. Able to manage 5. 5# spherical weighted balls w/ either hand via rolling without c/o fatigue w/ increased reps w/ R vs to L to hit targets (although, successfully did so). Good eye -hand coordination observed w/ gonzalez bag toss hitting isolated cone targets w/ the left and right. May want to integrate bolster swing based on feedback from Mynor. 'Mynor' or 'Wheels' would like to collaborate w/ outpatient w /c specialist; he would also like to collaborate w/ hospital-based jozef writers and/or animal rehabilitator. Outpatient OT rec to explore any additional sensory concerns and to cont to explore UE ROM options. - Plan Therapy Recommendations Advance per Rehabilitation Protocol
--- NOTE | 2024-06-24 14:57 | OT.OPPOC ---
Physical, Occupational & Speech Therapy At [facility] Hernan Harvey [id number] 1985 Visit Care Team Role Provider Type TRACY Cano Attending Provider Non-Staff Family Provider Primary Care Provider Referring Provider Address: [facility] [address], [place], [address] Occupational Therapy Plan of Care OT Outpatient Adult Evaluation Start: 02/05/24 07:45 Freq: Status: Active Protocol: Document 02/04/24 15:45 AMS (Rec: 02/05/24 08:20 AMS [id number]) General Information - Adult Visit Information Visit Number 10/01; 10/10; 19 visits -> KX 20th visit Plan of Care Dates 02/04/24 - 03/17/24 Insurance Information Medicare; KX modifier after 19 visits PCY Session Time Visit Start Time 10:30 Visit Stop Time 11:25 Setting Treatment Setting Outpatient Care Visit Type Note Type Initial Evaluation Referral Referring Physician MABEL Cano Reason for Referral Cerebral palsy Precautions None listed Identification Identification Confirmed Yes Goals Prison Goals Prison Goals 1. Mynor will be modified independent with home exercise program utilizing provided written and visual instructions as needed. Assessment/Plan Assessment Treatment Assessment Hernan ('Mynor' or 'Wheels') is 38 y.o.; he was referred to OT by family nurse practitioner for cerebral palsy and to address sensory processing. Medical history is significant for: paraplegia; anxiety; ADD/ADHD; memory loss/dementia ; depression; dizziness; falls ; hearing problems; back/neck/ jaw pain; neuropathy; seizures ; ASD; TBI/concussion; vision problems; sensory modulation disorder. He reports h/o falls and pressure sores. Medications prescribed are for pain and to address tone/ rigidity. Whole Body Pain Assessment Grid completed; indication of 8 out of 10 on the pain scale relative to lower extremities and trunk. Wrist/Hand Pain Assessment Grid completed; indication of 10 out of 10 on the pain scale relative to dorsal/volar surfaces of both hands/wrists. QuickDASH UE Outcome Measure Score = 84.09. QuickDASH Work Module Score (Assemblyman Or Woman Volunteer; walking service dog ) = 75.00. QuickDASH Sports/ Performing Arts Module Score ( Percussion Musician Dystonion) = 100.00. Mynor has an electric w/c; he also has a light/titanium based manual w/c; he presented in reported loaner manual w/c . Mynor has 65 cm yoga/therapy ball (x 2), sensory clouds ( crash pads), peanutballs, and a rainbow swing from [facility]. He has a smart home set-up thru [facility] for lighting. He is seeking smart home set-up for entering and exiting the home . He is ambidexturous; he uses R hand for manuevering judie stick of electric w/c; L hand for handwriting and for holding leash for walking of therapy dog. He indicated that he needs varying degrees of assist in the home (sometimes no assist, other times max assist); he denied having any assist/caregivers. He does have a shower chair and has interest in andrew development. He uses paratransit and has interest in hippotherapy. He presented in barefoot toe shoes, although, they did not fit onto heels. Cable Armorer strength of R hand obtained w/ elbow ext, forearm pronation = 32.0# of force; log rafter strength of L hand obtained w/ elbow ext, forearm in neutral = 3.0# of force. Able to transfer to peanutball w/ SBA w/ use of TT to support maintenance of balance; reliance on UEs w/ sitting balance without feet resting on floor. Further assessment is needed in order to establish appropriate goals . Plan Length of treatment (weeks) 6 Plan of Care Start Date 02/04/24 Plan of Care End Date 03/17/24 Treatment Frequency Once a Week Therapeutic Contents Active Range of Motion, Adaptive Equipment Education, Functional Activities,Home Exercise Program,Joint Protection,Manual Therapy, Education,Neurodevelopment Treatment,Neuromuscular Re- Education,Self-Care,Stretching /Flexibility Activities, Therapeutic Activities, Therapeutic Exercises Functional Wrist/Hand Scan Hand Side Sensory Assessment Sensory Profile2 OT Outpatient Treatment Note - Adult Start: 02/05/24 07:45 Freq: Status: Active Protocol: Document 06/24/24 14:50 AMS (Rec: 06/24/24 14:57 AMS [id number]) OT Outpatient Adult Treatment Note Session Time Visit Start Time 13:00 Visit Stop Time 13:45 Visit Information Visit Number 10/01; ; 19 visits -> KX 20th visit Plan of Care Dates 06/22/24 - 08/31/24 Insurance Information Medicare; KX modifier after 19 visits PCY Setting Treatment Setting Outpatient Care Visit Type Note Type Treatment Note General Information General Information Hernan ('Mynor' or 'Wheels') is 38 y.o.; he was referred to OT by family nurse practitioner for cerebral palsy and to address sensory processing. Medical history is significant for: paraplegia; anxiety; ADD/ADHD; memory loss/dementia ; depression; dizziness; falls ; hearing problems; back/neck/ jaw pain; neuropathy; seizures ; ASD; TBI/concussion; vision problems; sensory modulation disorder. He reports h/o falls and pressure sores. - Subjective Identification Type Name Observations Mynor is interested in richard system modifications. Mynor is being followed by Urology at [facility]. Wearing cath bag L LE. Mynor was accompanied by Rice to treatment session . Installation of smart controlled lighting system; verbalization of desire to remove all cabinet doors to increase ease of access to items within the kitchen; verbalization of desire to install smart lock system or similiar modification to front door to support ease of access to the home for himself , caregivers, family, friends, etc. Rice = friend who frequently accompanies him. Enjoys karaoke. Has peanutball . Has z-vibe; has lycra tunnel w/ 2 handles available at each opening to help facilitate navigation. Has squigz/larger size for home use. Has vibrating neck pillow . z-vibe and vibrating neck pillow helped regulation to permit shaving/cutting of hair . h/o insomnia (since the age of 3). Has standard, manual w/ c. No difficulties observed w/ gripping wheels in order to propel. Efficient and symmetrical bilateral grasping and propulsion of wheels of manual w/c. Increased difficulty locking R w/c break . Has personal electric w/c. R handed control. - Objective Objective Measurements Please refer to below for progress towards established OT goals: R side tone fluctuations. Prison Goals 1. Mynor will be modified independent with home exercise program utilizing provided written and visual instructions as needed. - Treatment 2 Descriptor Sensory activities. Orientation to midline. Weight shifting. Righting reactions. Eye-hand coordination/UE AROM. - Assessment Assessment of Improvement 'Mynor' reported that he executes ROM exercises 2-15 times per day depending on UE tone; he reports objects help 'facilitate' UE ROM for him. He demonstrates efficient and symmetrical bilateral grasping and propulsion of wheels of personal manual w/c; he demonstrates modified independence w/ transferring into and out of his manual w/c although cueing intermittently for safety w/ locking of w/c brakes. He demonstrates modified independence w/ transferring into and out of electric w/c as well. Mynor has demonstrated B UE shoulder AROM WFL w/ increased reliance on L UE w/ manipulation of objects w/ eye -hand coordination based tasks . He has demonstrated ability to cross midline w/ B UEs and coordinate hands/UEs in frontal plane. Eye-hand coordination has been completing via sliding, underhand tossing, and/or over -head throwing below head level bilaterally. He has demonstrated ability to manage 5.5# sphericball w/ either hand. Fluctuating tone has impacted R side of body and/or completing transitional movements (seated trunk flex w / rotation to L w/ ipsilateral L UE obj return w/ return to upright sitting). May want to integrate bolster swing based on feedback from Mynor. Outpatient OT rec to explore any additional sensory concerns and to cont to explore UE ROM options. - Plan Therapy Recommendations Advance per Rehabilitation Protocol Comment 10 weeks Frequency of Treatment Once a Week Therapeutic Contents Active Range of Motion, Adaptive Equipment Education, Functional Activities,Home Exercise Program,Joint Protection,Education, Neurodevelopment Treatment, Neuromuscular Re-Education, Self-Care,Stretching/ Flexibility Activities, Therapeutic Activities, Therapeutic Exercises,Sensory Re-education Electronically Signed by: Jeanine Palomares OT 06/24/24 [id number] If you are in agreement with this Plan of Care, please return a signed and dated copy. I have reviewed this Plan of Care and certify that the skilled therapy services above are required to meet the patient?s needs. Physician Signature Date Printed Name and Credentials Clinical Instructor Signature Printed Name and Credentials
--- NOTE | 2024-07-01 14:33 | OT.OP.TRT ---
Visit Care Team Role Provider Type TRACY Cano Attending Provider Non-Staff Family Provider Primary Care Provider Referring Provider Specialty: Nursing Address: [facility] [address], [place], [address] Email: Occupational Therapy Treatment Note OT Outpatient Treatment Note - Adult Start: 02/05/24 07:45 Freq: Status: Active Protocol: Document 07/01/24 14:29 AMS (Rec: 07/01/24 14:33 AMS [id number]) OT Outpatient Adult Treatment Note Session Time Visit Start Time 13:10 Visit Stop Time 13:45 Visit Information Visit Number 11/01; ; 19 visits -> KX 20th visit Plan of Care Dates 06/22/24 - 08/31/24 Insurance Information Medicare; KX modifier after 19 visits PCY Setting Treatment Setting Outpatient Care Visit Type Note Type Treatment Note General Information General Information Hernan ('Mynor' or 'Wheels') is 38 y.o.; he was referred to OT by family nurse practitioner for cerebral palsy and to address sensory processing. Medical history is significant for: paraplegia; anxiety; ADD/ADHD; memory loss/dementia ; depression; dizziness; falls ; hearing problems; back/neck/ jaw pain; neuropathy; seizures ; ASD; TBI/concussion; vision problems; sensory modulation disorder. He reports h/o falls and pressure sores. - Subjective Identification Type Name Observations Mynor is interested in AT and computer science. Mynor is being followed by Urology at [facility]. Wearing cath bag L LE . Installation of smart controlled lighting system; verbalization of desire to remove all cabinet doors to increase ease of access to items within the kitchen; verbalization of desire to install smart lock system or similiar modification to front door to support ease of access to the home for himself , caregivers, family, friends, etc. Rice = friend who frequently accompanies him. Enjoys karaoke. Has peanutball . Has z-vibe; has lycra tunnel w/ 2 handles available at each opening to help facilitate navigation. Has squigz/larger size for home use. Has vibrating neck pillow . z-vibe and vibrating neck pillow helped regulation to permit shaving/cutting of hair . h/o insomnia (since the age of 3). Has standard, manual w/ c. No difficulties observed w/ gripping wheels in order to propel. Efficient and symmetrical bilateral grasping and propulsion of wheels of manual w/c. Increased difficulty locking R w/c break . Has personal electric w/c. R handed control. - Objective Objective Measurements Please refer to below for progress towards established OT goals: R side tone fluctuations. Fci Goals 1. Mynor will be modified independent with home exercise program utilizing provided written and visual instructions as needed. - Treatment 2 Descriptor Sensory activities. Orientation to midline. Weight shifting. Righting reactions. Eye-hand coordination/UE AROM. - Assessment Assessment of Improvement 'Mynor' reported that he executes ROM exercises 2-15 times per day depending on UE tone; he reports objects help 'facilitate' UE ROM for him. He demonstrates efficient and symmetrical bilateral grasping and propulsion of wheels of personal manual w/c; he demonstrates modified independence w/ transferring into and out of his manual w/c although cueing intermittently for safety w/ locking of w/c brakes. He demonstrates modified independence w/ transferring into and out of electric w/c as well. Mynor has demonstrated B UE shoulder AROM WFL w/ increased reliance on L UE w/ manipulation of objects w/ eye -hand coordination based tasks . He has demonstrated ability to cross midline w/ B UEs and coordinate hands/UEs in frontal plane. Eye-hand coordination has been completing via sliding, underhand tossing, and/or over -head throwing mostly light objects below head level bilaterally. He has demonstrated ability to manage 5.5# sphericball w/ either hand. Fluctuating tone has impacted R side of body and/or completing transitional movements; report of fluctuating tone impacting trunk/core stabilization w/ pball use on this date; report of tone impacting trunk/core stabilization in w/c as well. Outpatient OT rec to explore any additional sensory concerns and to cont to explore UE ROM options. - Plan Therapy Recommendations Advance per Rehabilitation Protocol
--- NOTE | 2024-07-09 16:05 | OT.OP.TRT ---
Visit Care Team Role Provider Type TRACY Cano Attending Provider Non-Staff Family Provider Primary Care Provider Referring Provider Specialty: Nursing Address: [facility] [address], [place], [address] Email: Occupational Therapy Treatment Note OT Outpatient Treatment Note - Adult Start: 02/05/24 07:45 Freq: Status: Active Protocol: Document 07/09/24 16:02 AMS (Rec: 07/09/24 16:05 [facility] [id number]) OT Outpatient Adult Treatment Note Session Time Visit Start Time 13:45 Visit Stop Time 14:30 Visit Information Visit Number 11/29; ; 19 visits -> KX 20th visit Plan of Care Dates 06/22/24 - 08/31/24 Insurance Information Medicare; KX modifier after 19 visits PCY Setting Treatment Setting Outpatient Care Visit Type Note Type Treatment Note General Information General Information Hernan ('Mynor' or 'Wheels') is 38 y.o.; he was referred to OT by family nurse practitioner for cerebral palsy and to address sensory processing. Medical history is significant for: paraplegia; anxiety; ADD/ADHD; memory loss/dementia ; depression; dizziness; falls ; hearing problems; back/neck/ jaw pain; neuropathy; seizures ; ASD; TBI/concussion; vision problems; sensory modulation disorder. He reports h/o falls and pressure sores. - Subjective Identification Type Name Observations Mynor is being followed by Urology at [facility]. Installation of smart controlled lighting system; verbalization of desire to remove all cabinet doors to increase ease of access to items within the kitchen; verbalization of desire to install smart lock system or similiar modification to front door to support ease of access to the home for himself , caregivers, family, friends, etc. Rice = friend who frequently accompanies him. Enjoys karaoke. Has peanutball . Has z-vibe; has lycra tunnel w/ 2 handles available at each opening to help facilitate navigation. Has squigz/larger size for home use. Has vibrating neck pillow . z-vibe and vibrating neck pillow helped regulation to permit shaving/cutting of hair . h/o insomnia (since the age of 3). Has standard, manual w/ c. No difficulties observed w/ gripping wheels in order to propel. Efficient and symmetrical bilateral grasping and propulsion of wheels of manual w/c. Increased difficulty locking R w/c break . Has personal electric w/c. R handed control. - Objective Objective Measurements Please refer to below for progress towards established OT goals: R side tone fluctuations. Soybean Grower Goals 1. Mynor will be modified independent with home exercise program utilizing provided written and visual instructions as needed. - Treatment 2 Descriptor Sensory activities. Orientation to midline. Weight shifting. Righting reactions. Eye-hand coordination/UE AROM. - Assessment Assessment of Improvement 'Mynor' reported that he executes ROM exercises 2-15 times per day depending on UE tone; he reports objects help 'facilitate' UE ROM for him. He demonstrates efficient and symmetrical bilateral grasping and propulsion of wheels of personal manual w/c; he demonstrates modified independence w/ transferring into and out of his manual w/c although cueing intermittently for safety w/ locking of w/c brakes. He demonstrates modified independence w/ transferring into and out of electric w/c as well. Mynor has demonstrated B UE shoulder AROM WFL w/ increased reliance on L UE w/ manipulation of objects w/ eye -hand coordination based tasks . He has demonstrated ability to cross midline w/ B UEs and coordinate hands/UEs in frontal plane. Eye-hand coordination has been completing via sliding, underhand tossing, and/or over -head throwing mostly light objects below head level bilaterally. He demonstrate positioning of hand above head bilaterally w/ overhand throwing in today's session. He has demonstrated ability to manage 5.5# sphericball w/ either hand. Tone did not have an impact on activities in today's treatment session. - Plan Therapy Recommendations Advance per Rehabilitation Protocol
--- NOTE | 2024-07-16 15:27 | OT.OP.TRT ---
Visit Care Team Role Provider Type TRACY Cano Attending Provider Non-Staff Family Provider Primary Care Provider Referring Provider Specialty: Nursing Address: [facility] [address], [place], [address] Email: Occupational Therapy Treatment Note OT Outpatient Treatment Note - Adult Start: 02/05/24 07:45 Freq: Status: Active Protocol: Document 07/16/24 15:21 AMS (Rec: 07/16/24 15:27 AMS [id number]) OT Outpatient Adult Treatment Note Session Time Visit Start Time 14:30 Visit Stop Time 15:15 Visit Information Visit Number 12/30; ; visits -> KX 20th visit Plan of Care Dates 06/22/24 - 08/31/24 Insurance Information Medicare; KX modifier after 19 visits PCY Setting Treatment Setting Outpatient Care Visit Type Note Type Treatment Note General Information General Information Hernan ('Mynor' or 'Wheels') is 38 y.o.; he was referred to OT by family nurse practitioner for cerebral palsy and to address sensory processing. Medical history is significant for: paraplegia; anxiety; ADD/ADHD; memory loss/dementia ; depression; dizziness; falls ; hearing problems; back/neck/ jaw pain; neuropathy; seizures ; ASD; TBI/concussion; vision problems; sensory modulation disorder. He reports h/o falls and pressure sores. - Subjective Identification Type Name Observations Mynor was seen 1:1 for treatment session; Mynor reports having a difficult week. He is looking forward to going to fluid Operations this evening. Dwayne has been attending tourist home keeper training this entire week. Mynor is being followed by Urology at [facility]. Installation of smart controlled lighting system in the home; verbalization of desire to remove all cabinet doors to increase ease of access to items within the kitchen; verbalization of desire to install smart lock system or similiar modification to front door to support ease of access to the home for himself , caregivers, family, friends, etc. Rice = friend who frequently accompanies him. Enjoys karaoke. Has peanutball . Has z-vibe; has lycra tunnel w/ 2 handles available at each opening to help facilitate navigation. Has squigz/larger size for home use. Has vibrating neck pillow . z-vibe and vibrating neck pillow helped regulation to permit shaving/cutting of hair . h/o insomnia (since the age of 3). Has standard, manual w/ c. No difficulties observed w/ gripping wheels in order to propel. Efficient and symmetrical bilateral grasping and propulsion of wheels of manual w/c. Increased difficulty locking R w/c break . Has personal electric w/c. R handed control. - Objective Objective Measurements Please refer to below for progress towards established OT goals: R side tone fluctuations. Pilot Supervisor Goals 1. Mynor will be modified independent with home exercise program utilizing provided written and visual instructions as needed. - Treatment 3 Descriptor Eye-hand coordination. Dynamic sitting balance. Object manipulation. 500 gm angled trampoline throw and catch. Completed w/ use of both hands. 2 Descriptor Sensory activities. Orientation to midline. Weight shifting. Righting reactions. Eye-hand coordination/UE AROM. - Assessment Assessment of Improvement 'Mynor' reported that he executes ROM exercises 2-15 times per day depending on UE tone; he reports objects help 'facilitate' UE ROM for him. He demonstrates efficient and symmetrical bilateral grasping and propulsion of wheels of personal manual w/c; he demonstrates modified independence w/ transferring into and out of his manual w/c although cueing intermittently for safety w/ locking of w/c brakes. He demonstrates modified independence w/ transferring into and out of electric w/c as well. Mynor has demonstrated B UE shoulder AROM WFL w/ increased reliance on L UE w/ manipulation of objects w/ eye -hand coordination based tasks . He has demonstrated ability to cross midline w/ B UEs and coordinate hands/UEs in frontal plane. Eye-hand coordination has been completed via sliding, underhand tossing, and/or over -head throwing mostly light objects below head level bilaterally. He did not position either hand above head bilaterally w/ overhand throwing; was observed w/ ease and fluidity 07/09/24. He has demonstrated ability to manage 5.5# sphericball w/ either hand. Trunk/core tone slightly impacted activities in today's treatment session; noted on 2 occasions w/ large peanutball use. Did trial angled trampoline use; he did quite well w/ 500 gm ball; caught weighted ball 2-handed. - Plan Therapy Recommendations Advance per Rehabilitation Protocol
--- NOTE | 2024-07-23 15:39 | OT.OP.TRT ---
Visit Care Team Role Provider Type TRACY Cano Attending Provider Non-Staff Family Provider Primary Care Provider Referring Provider Specialty: Nursing Address: [facility] [address], [place], [address] Email: Occupational Therapy Treatment Note OT Outpatient Treatment Note - Adult Start: 02/05/24 07:45 Freq: Status: Active Protocol: Document 07/23/24 15:30 AMS (Rec: 07/23/24 15:39 AMS [id number]) OT Outpatient Adult Treatment Note Session Time Visit Start Time 14:35 Visit Stop Time 15:20 Visit Information Visit Number 01/29; ; 19 visits -> KX 20th visit Plan of Care Dates 06/22/24 - 08/31/24 Insurance Information Medicare; KX modifier after 19 visits PCY Setting Treatment Setting Outpatient Care Visit Type Note Type Treatment Note General Information General Information Hernan ('Mynor' or 'Wheels') is 38 y.o.; he was referred to OT by family nurse practitioner for cerebral palsy and to address sensory processing. Medical history is significant for: paraplegia; anxiety; ADD/ADHD; memory loss/dementia ; depression; dizziness; falls ; hearing problems; back/neck/ jaw pain; neuropathy; seizures ; ASD; TBI/concussion; vision problems; sensory modulation disorder. He reports h/o falls and pressure sores. - Subjective Identification Type Name Observations Mynor was accompanied by Rice to treatment session. Mynor had some suggestions/ recommendations that would help expand upon current uses of available vestibular equipment (central dowel suspension system and/or rotary piece w/ carabiner). Mynor is being followed by Urology at [facility]. Installation of smart controlled lighting system in the home; verbalization of desire to remove all cabinet doors to increase ease of access to items within the kitchen; verbalization of desire to install smart lock system or similiar modification to front door to support ease of access to the home for himself, caregivers, family, friends, etc. Rice = friend who frequently accompanies him. Enjoys karaoke. Has peanutball . Has z-vibe; has lycra tunnel w/ 2 handles available at each opening to help facilitate navigation. Has squigz/larger size for home use. Has vibrating neck pillow . z-vibe and vibrating neck pillow helped regulation to permit shaving/cutting of hair . h/o insomnia (since the age of 3). Has standard, manual w/ c. No difficulties observed w/ gripping wheels in order to propel. Efficient and symmetrical bilateral grasping and propulsion of wheels of manual w/c. Increased difficulty locking R w/c break . Has personal electric w/c. R handed control. - Objective Objective Measurements Please refer to below for progress towards established OT goals: R side tone fluctuations. [employer] Goals 1. Mynor will be modified independent with home exercise program utilizing provided written and visual instructions as needed. - Treatment 3 Descriptor Eye-hand coordination. Dynamic sitting balance. Object manipulation. 500 gm to 6.6# weighted spherical ball angled trampoline throw and catch. Completed w/ use of both hands . Rotation of w/c 90 degrees L ; rotation of w/c 90 degrees R . 2 Descriptor Sensory activities. Orientation to midline. Weight shifting. Righting reactions. Eye-hand coordination/UE AROM. - Assessment Assessment of Improvement 'Mynor' reported that he executes ROM exercises 2-15 times per day depending on UE tone; he reports objects help 'facilitate' UE ROM for him. He demonstrates efficient and symmetrical bilateral grasping and propulsion of wheels of personal manual w/c; he demonstrates modified independence w/ transferring into and out of his manual w/c although cueing intermittently for safety w/ locking of w/c brakes. He demonstrates modified independence w/ transferring into and out of electric w/c as well. Mynor has demonstrated B UE shoulder AROM WFL w/ increased reliance on L UE w/ manipulation of objects w/ eye -hand coordination based tasks . He has demonstrated ability to cross midline w/ B UEs and coordinate hands/UEs in frontal plane. Eye-hand coordination has been completed via sliding, underhand tossing, and/or over -head throwing mostly light objects below head level bilaterally. He did not position either hand above head bilaterally w/ overhand throwing; was observed w/ ease and fluidity 07/09/24. He has demonstrated ability to manage 6.6# spherical ball w/ either hand w/ use of angled trampoline seated and w/ w/c rotated to the L and the R 90 degrees. Trunk/core tone did not impact activities in today 's treatment session. (+) request for heavy input and vestibular input via red bolster swing at conclusion of treatment session. - Plan Therapy Recommendations Advance per Rehabilitation Protocol
--- NOTE | 2024-07-30 15:33 | OT.OP.TRT ---
Visit Care Team Role Provider Type TRACY Cano Attending Provider Non-Staff Family Provider Primary Care Provider Referring Provider Specialty: Nursing Address: [facility] [address], [place], [address] Email: Occupational Therapy Treatment Note OT Outpatient Treatment Note - Adult Start: 02/05/24 07:45 Freq: Status: Active Protocol: Document 07/30/24 15:29 AMS (Rec: 07/30/24 15:33 AMS [id number]) OT Outpatient Adult Treatment Note Session Time Visit Start Time 14:35 Visit Stop Time 15:15 Visit Information Visit Number 03/01; ; 19 visits -> KX 20th visit Plan of Care Dates 06/22/24 - 08/31/24 Insurance Information Medicare; KX modifier after 19 visits PCY Setting Treatment Setting Outpatient Care Visit Type Note Type Treatment Note General Information General Information Hernan ('Mynor' or 'Wheels') is 38 y.o.; he was referred to OT by family nurse practitioner for cerebral palsy and to address sensory processing. Medical history is significant for: paraplegia; anxiety; ADD/ADHD; memory loss/dementia ; depression; dizziness; falls ; hearing problems; back/neck/ jaw pain; neuropathy; seizures ; ASD; TBI/concussion; vision problems; sensory modulation disorder. He reports h/o falls and pressure sores. - Subjective Identification Type Name Observations Mynor was accompanied by Rice to treatment session. Mynor is being followed by Urology at [facility]. Report of having a hard workout w/ PT. Report of plans to make Iranian and/or [place] Island[place] soup this evening. (+) investment in software update to computer. Installation of smart controlled lighting system in the home; verbalization of desire to remove all cabinet doors to increase ease of access to items within the kitchen; verbalization of desire to install smart lock system or similiar modification to front door to support ease of access to the home for himself, caregivers, family, friends, etc. Rice = friend who frequently accompanies him. Enjoys karaoke. Has peanutball . Has z-vibe; has lycra tunnel w/ 2 handles available at each opening to help facilitate navigation. Has squigz/larger size for home use. Has vibrating neck pillow . z-vibe and vibrating neck pillow helped regulation to permit shaving/cutting of hair . h/o insomnia (since the age of 3). Has standard, manual w/ c. No difficulties observed w/ gripping wheels in order to propel. Efficient and symmetrical bilateral grasping and propulsion of wheels of manual w/c. Increased difficulty locking R w/c break . Has personal electric w/c. R handed control. - Objective Objective Measurements Please refer to below for progress towards established OT goals: R side tone fluctuations. [employer] Goals 1. Mynor will be modified independent with home exercise program utilizing provided written and visual instructions as needed. - Treatment 3 Descriptor Eye-hand coordination. Dynamic sitting balance. Object manipulation. 500 gm to 6.6# weighted spherical ball angled trampoline throw and catch. Completed w/ use of both hands . Rotation of w/c 90 degrees L ; rotation of w/c 90 degrees R . 2 Descriptor Sensory activities. Orientation to midline. Weight shifting. Righting reactions. Eye-hand coordination/UE AROM. - Assessment Assessment of Improvement 'Mynor' reported that he executes ROM exercises 2-15 times per day depending on UE tone; he reports objects help 'facilitate' UE ROM for him. He demonstrates efficient and symmetrical bilateral grasping and propulsion of wheels of personal manual w/c; he demonstrates modified independence w/ transferring into and out of his manual w/c although cueing intermittently for safety w/ locking of w/c brakes. He demonstrates modified independence w/ transferring into and out of electric w/c as well. Mynor has demonstrated B UE shoulder AROM WFL w/ increased reliance on L UE w/ manipulation of objects w/ eye -hand coordination based tasks . He has demonstrated ability to cross midline w/ B UEs and coordinate hands/UEs in frontal plane. Eye-hand coordination has been completed via sliding, underhand tossing, and/or over -head throwing mostly light objects below head level bilaterally. He did not position either hand above head bilaterally w/ overhand throwing; was observed w/ ease and fluidity 07/09/24. He has demonstrated ability to manage 6.6# spherical ball w/ either hand w/ use of angled trampoline seated and w/ w/c rotated to the L and the R 90 degrees. L UE tone presented in today's session on one occasion; has primarily presented on the R side. Recommend considering UEB and/ or pulleys as an additional UE ROM exercise; has verbalized concerns re: rotator cuffs bilaterally w/ increased number of repetitions. - Plan Therapy Recommendations Advance per Rehabilitation Protocol
--- NOTE | 2024-08-12 16:01 | OT.OP.TRT ---
Visit Care Team Role Provider Type TRACY Cano Attending Provider Non-Staff Family Provider Primary Care Provider Referring Provider Specialty: Nursing Address: [facility] [address], [place], [address] Email: Occupational Therapy Treatment Note OT Outpatient Treatment Note - Adult Start: 02/05/24 07:45 Freq: Status: Active Protocol: Document 08/12/24 15:55 AMS (Rec: 08/12/24 16:01 AMS [id number]) OT Outpatient Adult Treatment Note Session Time Visit Start Time 13:50 Visit Stop Time 14:30 Visit Information Visit Number 03/31; ; 19 visits -> KX 20th visit Plan of Care Dates 06/22/24 - 08/31/24 Insurance Information Medicare; KX modifier after 19 visits PCY Setting Treatment Setting Outpatient Care Visit Type Note Type Treatment Note General Information General Information Hernan ('Mynor' or 'Wheels') is 38 y.o.; he was referred to OT by family nurse practitioner for cerebral palsy and to address sensory processing. Medical history is significant for: paraplegia; anxiety; ADD/ADHD; memory loss/dementia ; depression; dizziness; falls ; hearing problems; back/neck/ jaw pain; neuropathy; seizures ; ASD; TBI/concussion; vision problems; sensory modulation disorder. He reports h/o falls and pressure sores. - Subjective Identification Type Name Observations Mynor was accompanied by Dwayne to treatment session. Mynor is being followed by Urology at [facility]. Takes Milkshake out for walk x 4 per day; Rice assists with walking Milkshake. Mynor reported having a rough couple of days. Increased tone; discomfort presenting inferior and medial primarily of the R scapula; expresses concerns re: rotator cuff and increased number of repetitions primarily the R rotator cuff. Installation of smart controlled lighting system in the home; verbalization of desire to remove all cabinet doors to increase ease of access to items within the kitchen; verbalization of desire to install smart lock system or similiar modification to front door to support ease of access to the home for himself, caregivers, family, friends, etc. Rice = friend who frequently accompanies him. Enjoys karaoke. Has peanutball . Has z-vibe; has lycra tunnel w/ 2 handles available at each opening to help facilitate navigation. Has squigz/larger size for home use. Has vibrating neck pillow . z-vibe and vibrating neck pillow helped regulation to permit shaving/cutting of hair . h/o insomnia (since the age of 3). Has standard, manual w/ c. No difficulties observed w/ gripping wheels in order to propel. Efficient and symmetrical bilateral grasping and propulsion of wheels of manual w/c. Increased difficulty locking R w/c break . Has personal electric w/c. R handed control. - Objective Objective Measurements Please refer to below for progress towards established OT goals: R side tone fluctuations. Product Merchandiser Goals 1. Mynor will be modified independent with home exercise program utilizing provided written and visual instructions as needed. - Treatment 3 Descriptor Eye-hand coordination. Dynamic sitting balance. Object manipulation. 500 gm weighted spherical ball angled trampoline throw and catch. Completed w/ use of both hands and forward facing. N/A 08/12/24 6.6# weighted spherical ball angled trampoline throw and catch. Rotation of w/c 90 degrees L; rotation of w/c 90 degrees R. 2 Descriptor Sensory activities. Orientation to midline. Weight shifting. Righting reactions. Eye-hand coordination/UE AROM. - Assessment Assessment of Improvement 'Mynor' reported that he executes ROM exercises 2-15 times per day depending on UE tone; he reports objects help 'facilitate' UE ROM for him. He demonstrates efficient and symmetrical bilateral grasping and propulsion of wheels of personal manual w/c; he demonstrates modified independence w/ transferring into and out of his manual w/c although cueing intermittently for safety w/ locking of w/c brakes. He demonstrates modified independence w/ transferring into and out of electric w/c as well. Mynor has demonstrated B UE shoulder AROM WFL w/ increased reliance on L UE w/ manipulation of objects w/ eye -hand coordination based tasks . He has demonstrated ability to cross midline w/ B UEs and coordinate hands/UEs in frontal plane. Eye-hand coordination has been completed via sliding, underhand tossing, and/or over -head throwing mostly light objects below head level bilaterally. He did not position either hand above head bilaterally w/ overhand throwing; was observed w/ ease and fluidity 07/09/24. R UE tone presented in today's session on several occasions affecting activity participation; concern re: R rotator cuff w/ discomfort reported medially and inferior to R scapula. Demonstrated ability to reposition self and peanutball without assist, w/ peanutball horizontally and/ or vertically. Recommend considering UEB and/or pulleys as an additional UE ROM exercise (for ROM). - Plan Therapy Recommendations Advance per Rehabilitation Protocol
--- NOTE | 2024-09-13 12:45 | OT.OP.DC ---
Visit Care Team Role Provider Type TRACY Cano Attending Provider Non-Staff Family Provider Primary Care Provider Referring Provider Address: [facility] [address], [place], [address] Email: OT Outpatient OT Outpatient Adult Evaluation Start: 02/05/24 07:45 Freq: Status: Active Protocol: Document 02/04/24 15:45 AMS (Rec: 02/05/24 08:20 AMS [id number]) General Information - Adult Visit Information Visit Number 10/01; 10/10; 19 visits -> KX 20th visit Plan of Care Dates 02/04/24 - 03/17/24 Insurance Information Medicare; KX modifier after 19 visits PCY Session Time Visit Start Time 10:30 Visit Stop Time 11:25 Setting Treatment Setting Outpatient Care Visit Type Note Type Initial Evaluation Referral Referring Physician MABEL Cano Reason for Referral Cerebral palsy Precautions None listed Identification Identification Confirmed Yes Goals Reconciliation Clerk Goals Reconciliation Clerk Goals 1. Mynor will be modified independent with home exercise program utilizing provided written and visual instructions as needed. Assessment/Plan Assessment Treatment Assessment Hernan ('Mynor' or 'Wheels') is 38 y.o.; he was referred to OT by family nurse practitioner for cerebral palsy and to address sensory processing. Medical history is significant for: paraplegia; anxiety; ADD/ADHD; memory loss/dementia ; depression; dizziness; falls ; hearing problems; back/neck/ jaw pain; neuropathy; seizures ; ASD; TBI/concussion; vision problems; sensory modulation disorder. He reports h/o falls and pressure sores. Medications prescribed are for pain and to address tone/ rigidity. Whole Body Pain Assessment Grid completed; indication of 8 out of 10 on the pain scale relative to lower extremities and trunk. Wrist/Hand Pain Assessment Grid completed; indication of 10 out of 10 on the pain scale relative to dorsal/volar surfaces of both hands/wrists. QuickDASH UE Outcome Measure Score = 84.09. QuickDASH Work Module Score (Senior Grant Writer Volunteer; walking service dog ) = 75.00. QuickDASH Sports/ Performing Arts Module Score ( Percussion Musician Dystonion) = 100.00. Mynor has an electric w/c; he also has a light/titanium based manual w/c; he presented in reported loaner manual w/c . Mynor has 65 cm yoga/therapy ball (x 2), sensory clouds ( crash pads), peanutballs, and a rainbow swing from [facility]. He has a smart home set-up thru [facility] for lighting. He is seeking smart home set-up for entering and exiting the home . He is ambidexturous; he uses R hand for manuevering judie stick of electric w/c; L hand for handwriting and for holding leash for walking of therapy dog. He indicated that he needs varying degrees of assist in the home (sometimes no assist, other times max assist); he denied having any assist/caregivers. He does have a shower chair and has interest in andrew development. He uses paratransit and has interest in hippotherapy. He presented in barefoot toe shoes, although, they did not fit onto heels. Genetic Scientist strength of R hand obtained w/ elbow ext, forearm pronation = 32.0# of force; mva operator strength of L hand obtained w/ elbow ext, forearm in neutral = 3.0# of force. Able to transfer to peanutball w/ SBA w/ use of TT to support maintenance of balance; reliance on UEs w/ sitting balance without feet resting on floor. Further assessment is needed in order to establish appropriate goals . Plan Length of treatment (weeks) 6 Plan of Care Start Date 02/04/24 Plan of Care End Date 03/17/24 Treatment Frequency Once a Week Therapeutic Contents Active Range of Motion, Adaptive Equipment Education, Functional Activities,Home Exercise Program,Joint Protection,Manual Therapy, Education,Neurodevelopment Treatment,Neuromuscular Re- Education,Self-Care,Stretching /Flexibility Activities, Therapeutic Activities, Therapeutic Exercises Functional Wrist/Hand Scan Hand Side Sensory Assessment Sensory Profile2 OT Outpatient Treatment Note - Adult Start: 02/05/24 07:45 Freq: Status: Active Protocol: Document 09/13/24 12:41 AMS (Rec: 09/13/24 12:45 [facility] [id number]) OT Outpatient Adult Treatment Note Visit Information Visit Number 03/31; ; 19 visits -> KX 20th visit Plan of Care Dates 06/22/24 - 08/31/24 Insurance Information Medicare; KX modifier after 19 visits PCY Setting Treatment Setting Outpatient Care Visit Type Note Type Discharge Summary - Subjective Observations Mynor (Hernan) has not been seen in the outpatient clinic by OT since 08/12/24 and outpatient OT POC on 08/31/24. Thus, recommend d/c from outpatient OT at this time and clinician to re- evaluate as deemed appropriate with receipt of new referral from PCP. - Objective Objective Measurements Please refer to below for progress towards established OT goals: R side tone fluctuations. Reconciliation Clerk Goals ALL GOALS D/C 09/13/24 1. Mynor will be modified independent with home exercise program utilizing provided written and visual instructions as needed. - - Assessment Assessment of Improvement Mynor (Hernan) has not been seen in the outpatient clinic by OT since 08/12/24 and outpatient OT POC on 08/31/24. Thus, recommend d/c from outpatient OT at this time and clinician to re- evaluate as deemed appropriate with receipt of new referral from PCP. - Plan Therapy Recommendations Discharge from Occupational Therapy
== END 2024-09-17 09:36 | disposition home or self-care (01) ==
LOC: OT 13:45
PROVIDERS: Family Provider Nurse Practitioner Family; PCP Nurse Practitioner Family; Referring Provider Nurse Practitioner Family; Visit Provider Nurse Practitioner Family
DX: G80.3 Athetoid cerebral palsy (principal)
CPT/HCPCS: 97167; 97530

== ENCOUNTER 2024-08-13 14:30 | Outpatient (RCR) | payer MEDICARE, MEDICAID, SELFPAY ==
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
== END 2024-08-23 13:45 | disposition home or self-care (01) ==
LOC: PHYS 14:30
PROVIDERS: Family Provider Nurse Practitioner Family; PCP Nurse Practitioner Family; Referring Provider Nurse Practitioner Family; Visit Provider Nurse Practitioner Family
DX: G80.4 Ataxic cerebral palsy (principal); G25.2 Other specified forms of tremor
CPT/HCPCS: 97110; 97112; 97116; 97163; 97530; 97535

== ENCOUNTER 2025-02-07 11:30 | Outpatient (RCR) | payer MEDICARE, MEDICAID, SELFPAY ==
--- NOTE | 2024-12-30 13:25 | OT.OP.EVAL ---
Visit Care Team Role Provider Type TRACY Cano Family Provider Non-Staff Primary Care Provider Specialty: Nursing Address: [address], [place], [address] Email: Brigitte Cervantes MD Attending Provider Non-Staff Referring Provider Specialty: Physical Medicine and Rehab Address: [address] [place], [address] Email: Occupational Therapy Initial Evaluation OT Outpatient Adult Evaluation Start: 12/30/24 13:03 Freq: Status: Active Protocol: Document 12/30/24 13:04 AMS (Rec: 12/30/24 13:22 AMS Desktop) General Information - Adult Visit Number 10/01; 10/10; visit --> KX modifier Plan of Care Dates 12/30/24 ? 02/10/25 Insurance Information Medicare Visit Start Time 11:45 Visit Stop Time 15:15 Treatment Setting Outpatient Care Note Type Initial Evaluation Identification Confirmed Yes Identification Confirmed By Self Goals Part Time Receptionist Goals 1. Hernan will be independent with upper extremity home exercise program. Assessment/Plan Treatment Assessment Hernan is 39 years old. Medical history is significant for: paraplegia; anxiety; ADD/ADHD; memory loss/dementia ; depression; dizziness; falls ; hearing problems; back/neck/ jaw pain; neuropathy; seizures ; ASD; TBI/concussion; vision problems; sensory modulation disorder; bilateral rotator cuff pain/discomfort. He reports h/o falls and pressure sores. Medications prescribed are for pain and to address tone/rigidity. Wrist/Hand Pain Assessment Grid completed; indication of 7-9 out of 10 on the pain scale relative to dorsal/volar surfaces of both hands/wrists. QuickDASH UE Outcome Measure Score = 86.36; QuickDASH Sports/Performing Arts Module Score = 75.00. Hernan presented in standard manual w/c; he is able to manage bilateral brakes and maneuver w/c independently. Past medical documentation indicates that he has an electric w/c and yoga/therapy ball, sensory clouds (crash pads), peanutball, and a swing . He reportedly has a smart home set-up thru [facility] for lighting and is seeking smart home set-up for entering and exiting the home. He is ambidexturous; he uses R hand for manuevering judie stick of electric w/c; L hand for handwriting. Dwayne, Hernan's caregiver, is available 4 x a week in the mornings; she assists w/ house keeping, meal preparation, grocery shopping and errands. He enjoys richard; he is actively using a racing simulator 4 days a week x 2 hours. Via richard system he is working on hand ROM and eye- hand coordination. He also takes his therapy dog, ' Sara', on walks holding the leash in his hand and/or attaching the leash to his w/c . 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 Does reportedly ' lock' into positions. Functional ROM includes placement of both hands on top of head, (-) inability to place hands on back of head, and (+) placement of bilateral hands on lower back. Approx R 45 degrees R forearm supination ROM vs approx L 75 degrees ROM. Dynamometer stud driver strength = 13.0# of force L stud driver vs 18.0# of force R stud driver. Length of treatment (weeks) 6 Plan of Care Start Date 12/30/24 Plan of Care End Date 02/10/25 Treatment Frequency Once a Week Therapeutic Contents Active Range of Motion, Functional Activities,Home Exercise Program, Neurodevelopment Treatment, Neuromuscular Re-Education, Self-Care,Therapeutic Activities,Therapeutic Exercises
--- NOTE | 2025-01-06 15:56 | OT.OP.TRT ---
Visit Care Team Role Provider Type TRACY Cano Family Provider Non-Staff Primary Care Provider Specialty: Nursing Address: [address], [place], [address] Email: Brigitte Cervantes MD Attending Provider Non-Staff Referring Provider Specialty: Physical Medicine and Rehab Address: [address] [place], [address] Email: Occupational Therapy Treatment Note OT Outpatient Treatment Note - Adult Start: 12/30/24 13:03 Freq: Status: Active Protocol: Document 01/06/25 15:50 AMS (Rec: 01/06/25 15:56 AMS [id number]) OT Outpatient Adult Treatment Note Session Time Visit Start Time 11:45 Visit Stop Time 12:15 Visit Information Visit Number 11/01; 11/10; visit --> KX modifier Plan of Care Dates 12/30/24 ? 02/10/25 Insurance Information Medicare Setting Treatment Setting Outpatient Care Visit Type Note Type Treatment Note General Information General Information Hernan is 39 years old. Medical history is significant for: paraplegia; anxiety; ADD/ADHD; memory loss/dementia ; depression; dizziness; falls ; hearing problems; back/neck/ jaw pain; neuropathy; seizures ; ASD; TBI/concussion; vision problems; sensory modulation disorder; bilateral rotator cuff pain/discomfort. He reports h/o falls and pressure sores. Medications prescribed are for pain and to address tone/rigidity. Wrist/Hand Pain Assessment Grid completed; indication of 7-9 out of 10 on the pain scale relative to dorsal/volar surfaces of both hands/wrists. QuickDASH UE Outcome Measure Score = 86.36; QuickDASH Sports/Performing Arts Module Score = 75.00. - Subjective Identification Type Name Observations Hernan was seen 1:1 for OT treatment session. He reported he double booked appointments this a.m. - Objective Objective Measurements Please refer to below for progress towards established OT goals: Assisted Goals 1. Hernan will be independent with upper extremity home exercise program. - Exercises 3 Descriptor Arm pulleys. ROM. x 4 min. 2 Descriptor Angled Trampoline. 50 grams. Seated. R. L. Alt R & L. Square throw x 2 cycles. 1 Descriptor UEB. x 10 min seated. Forwards direction. - Assessment Assessment of Improvement Upgraded therapeutic exercises /activities to utilization of gym equipment. - Plan Therapy Recommendations Advance per Rehabilitation Protocol
--- NOTE | 2025-01-11 12:25 | OT.OP.TRT ---
Visit Care Team Role Provider Type TRACY Cano Family Provider Non-Staff Primary Care Provider Specialty: Nursing Address: [address], [place], [address] Email: Brigitte Cervantes MD Attending Provider Non-Staff Referring Provider Specialty: Physical Medicine and Rehab Address: [address] [place], [address] Email: Occupational Therapy Treatment Note OT Outpatient Treatment Note - Adult Start: 12/30/24 13:03 Freq: Status: Active Protocol: Document 01/11/25 12:21 AMS (Rec: 01/11/25 12:25 AMS [id number]) OT Outpatient Adult Treatment Note Session Time Visit Start Time 11:05 Visit Stop Time 11:28 Visit Information Visit Number 11/29; 12/08; visit --> KX modifier Plan of Care Dates 12/30/24 ? 02/10/25 Insurance Information Medicare Setting Treatment Setting Outpatient Care Visit Type Note Type Treatment Note General Information General Information Hernan is 39 years old. Medical history is significant for: paraplegia; anxiety; ADD/ADHD; memory loss/dementia ; depression; dizziness; falls ; hearing problems; back/neck/ jaw pain; neuropathy; seizures ; ASD; TBI/concussion; vision problems; sensory modulation disorder; bilateral rotator cuff pain/discomfort. He reports h/o falls and pressure sores. Medications prescribed are for pain and to address tone/rigidity. Wrist/Hand Pain Assessment Grid completed; indication of 7-9 out of 10 on the pain scale relative to dorsal/volar surfaces of both hands/wrists. QuickDASH UE Outcome Measure Score = 86.36; QuickDASH Sports/Performing Arts Module Score = 75.00. - Subjective Identification Type Name Observations Hernan was seen 1:1 for OT treatment session. He reported he double booked appointments this a.m. - Objective Objective Measurements Please refer to below for progress towards established OT goals: Correction Goals 1. Hernan will be independent with upper extremity home exercise program. - Exercises 4 Descriptor Strengthening. Seated. Bilateral rows. 20#. 3 x 10. Seated. Unilateral/Alternating Sh ext. 20#. 3 x 10. 3 Descriptor Arm pulleys. ROM. x 4 min. 2 Descriptor N/A 01/11/25 Angled Trampoline. 50 grams. Seated. R. L. Alt R & L. Square throw x 2 cycles. 1 Descriptor UEB. x 10 min seated. Height of arm pedals #4. Distance of seat #13. Forwards direction. - Assessment Assessment of Improvement Upgraded therapeutic exercises . See above for details. - Plan Therapy Recommendations Advance per Rehabilitation Protocol
--- NOTE | 2025-01-18 12:38 | OT.OP.TRT ---
Visit Care Team Role Provider Type TRACY Cano Family Provider Non-Staff Primary Care Provider Specialty: Nursing Address: [facility] [address], [place], [address] Email: Brigitte Cervantes MD Attending Provider Non-Staff Referring Provider Specialty: Physical Medicine and Rehab Address: [address] [place], [address] Email: Occupational Therapy Treatment Note OT Outpatient Treatment Note - Adult Start: 12/30/24 13:03 Freq: Status: Active Protocol: Document 01/18/25 12:35 AMS (Rec: 01/18/25 12:38 AMS [id number]) OT Outpatient Adult Treatment Note Session Time Visit Start Time 11:30 Visit Stop Time 12:13 Visit Information Visit Number 12/30; 01/08; visit --> KX modifier Plan of Care Dates 12/30/24 ? 02/10/25 Insurance Information Medicare Setting Treatment Setting Outpatient Care Visit Type Note Type Treatment Note General Information General Information Hernan is 39 years old. Medical history is significant for: paraplegia; anxiety; ADD/ADHD; memory loss/dementia ; depression; dizziness; falls ; hearing problems; back/neck/ jaw pain; neuropathy; seizures ; ASD; TBI/concussion; vision problems; sensory modulation disorder; bilateral rotator cuff pain/discomfort. He reports h/o falls and pressure sores. Medications prescribed are for pain and to address tone/rigidity. Wrist/Hand Pain Assessment Grid completed; indication of 7-9 out of 10 on the pain scale relative to dorsal/volar surfaces of both hands/wrists. QuickDASH UE Outcome Measure Score = 86.36; QuickDASH Sports/Performing Arts Module Score = 75.00. - Subjective Identification Type Name Observations Hernan was seen 1:1 for OT treatment session. He reported that he has a PT appointment following this appointment with a break in-between. - Objective Objective Measurements Please refer to below for progress towards established OT goals: Group Home Goals 1. Hernan will be independent with upper extremity home exercise program. - Treatment 1 Descriptor ROM/Sensory feedback. Ball. Overhand throw. UE ROM. Trunk rotation. N/A 01/18/25 Yoga ball. Cane. Suspended ball. Exercises 4 Descriptor Strengthening. Seated. Bilateral rows. 20#. 2 x 10. 1 x 2. Report of exercise/use of dylan system uncomfortable. Ceased. N/A 01/18/25 Seated. Unilateral/Alternating Sh ext. 20#. 3 x 10. 3 Descriptor Arm pulleys. ROM. x 4 min. 2 Descriptor Angled Trampoline. 50 grams. Seated. R. L. Alt R & L. N/A 01/18/25 Square throw x 2 cycles. 1 Descriptor UEB. x 10 min seated. Height of arm pedals #3. Distance of seat #11. Forwards direction. - Assessment Assessment of Improvement Upgraded therapeutic exercises . See above for details. - Plan Therapy Recommendations Advance per Rehabilitation Protocol
--- NOTE | 2025-01-25 11:43 | OT.OP.TRT ---
Visit Care Team Role Provider Type TRACY Cano Family Provider Non-Staff Primary Care Provider Specialty: Nursing Address: [address], [place], [address] Email: Brigitte Cervantes MD Attending Provider Non-Staff Referring Provider Specialty: Physical Medicine and Rehab Address: [address] [place], [address] Email: Occupational Therapy Treatment Note OT Outpatient Treatment Note - Adult Start: 12/30/24 13:03 Freq: Status: Active Protocol: Document 01/25/25 11:33 AMS (Rec: 01/25/25 11:43 AMS [id number]) OT Outpatient Adult Treatment Note Session Time Visit Start Time 11:05 Visit Stop Time 11:30 Visit Information Visit Number 01/29; 02/07; visit --> KX modifier Plan of Care Dates 12/30/24 ? 02/10/25 Insurance Information Medicare Setting Treatment Setting Outpatient Care Visit Type Note Type Treatment Note General Information General Information Hernan is 39 years old. Medical history is significant for: paraplegia; anxiety; ADD/ADHD; memory loss/dementia ; depression; dizziness; falls ; hearing problems; back/neck/ jaw pain; neuropathy; seizures ; ASD; TBI/concussion; vision problems; sensory modulation disorder; bilateral rotator cuff pain/discomfort. He reports h/o falls and pressure sores. Medications prescribed are for pain and to address tone/rigidity. Wrist/Hand Pain Assessment Grid completed; indication of 7-9 out of 10 on the pain scale relative to dorsal/volar surfaces of both hands/wrists. QuickDASH UE Outcome Measure Score = 86.36; QuickDASH Sports/Performing Arts Module Score = 75.00. - Subjective Identification Type Name Observations Seen 1:1 for OT treatment session. Has PT following OT. Traffic had a negative impact on commute; thus, led to late arrival. - Objective Objective Measurements Please refer to below for progress towards established OT goals: Retirement Goals 1. Hernan will be independent with upper extremity home exercise program. - Treatment 1 Descriptor ROM/Sensory feedback. Ball. Overhand throw. UE ROM. Trunk rotation. N/A 4/29/25 Yoga ball. Cane. Suspended ball. Exercises 4 Descriptor Strengthening. Seated. Bilateral rows. 20#. 2 x 10. 30# 1 x 10. N/A 01/18/25 Seated. Unilateral/Alternating Sh ext. 20#. 3 x 10. 3 Descriptor Arm pulleys. ROM. x 4 min. 2 Descriptor Angled Trampoline. 50 grams. Seated. R. L. Alt R & L. N/A 01/18/25 Square throw x 2 cycles. 1 Descriptor UEB. x 10 min seated. Height of arm pedals #3. Distance of seat #11. Forwards direction. - Assessment Assessment of Improvement Shortened session. Recommend advancing exercises. - Plan Therapy Recommendations Advance per Rehabilitation Protocol
--- NOTE | 2025-01-31 12:19 | OT.OP.TRT ---
Visit Care Team Role Provider Type TRACY Cano Family Provider Non-Staff Primary Care Provider Specialty: Nursing Address: [facility] [address], [place], [address] Email: Brigitte Cervantes MD Attending Provider Non-Staff Referring Provider Specialty: Physical Medicine and Rehab Address: [address] [place], [address] Email: Occupational Therapy Treatment Note OT Outpatient Treatment Note - Adult Start: 12/30/24 13:03 Freq: Status: Active Protocol: Document 01/31/25 12:14 AMS (Rec: 01/31/25 12:19 AMS Desktop) OT Outpatient Adult Treatment Note Session Time Visit Start Time 11:35 Visit Stop Time 12:15 Visit Information Visit Number 03/01; 03/10; visit --> KX modifier Plan of Care Dates 12/30/24 ? 02/10/25 Insurance Information Medicare Setting Treatment Setting Outpatient Care Visit Type Note Type Treatment Note General Information General Information Hernan is 39 years old. Medical history is significant for: paraplegia; anxiety; ADD/ADHD; memory loss/dementia ; depression; dizziness; falls ; hearing problems; back/neck/ jaw pain; neuropathy; seizures ; ASD; TBI/concussion; vision problems; sensory modulation disorder; bilateral rotator cuff pain/discomfort. He reports h/o falls and pressure sores. Medications prescribed are for pain and to address tone/rigidity. Wrist/Hand Pain Assessment Grid completed; indication of 7-9 out of 10 on the pain scale relative to dorsal/volar surfaces of both hands/wrists. QuickDASH UE Outcome Measure Score = 86.36; QuickDASH Sports/Performing Arts Module Score = 75.00. - Subjective Identification Type Name Observations Seen 1:1 for OT treatment session. Report of having a stressful morning. - Objective Objective Measurements Please refer to below for progress towards established OT goals: Mcfp Goals 1. Hernan will be independent with upper extremity home exercise program. - Treatment 1 Descriptor ROM/Sensory feedback. Ball. Overhand throw. UE ROM. Trunk rotation. N/A 01/18/25 Yoga ball. Cane. Suspended ball. Exercises 4 Descriptor N/A 01/31/25 Strengthening. Seated. Bilateral rows. 20#. 2 x 10. 30# 1 x 10. Seated. Unilateral/Alternating Sh ext. 20#. 3 x 10. 3 Descriptor Arm pulleys. ROM. x 5 min. 2 Descriptor Angled Trampoline. 500 grams. Seated. R. L. Alt R & L. 4 x 10. 1000 grams. Seated. R. L. Alt R & L. Formation of square. 4 x 10. 3.3#. Seated. R. L. 3 x 10. N/A 01/18/25 Square throw x 2 cycles. 1 Descriptor UEB. x 10 min seated. Height of arm pedals #3. Distance of seat #11. Forwards direction. - Assessment Assessment of Improvement Increased resistance w/ angled trampoline exercises. Recommend advancing exercises. - Plan Therapy Recommendations Advance per Rehabilitation Protocol
--- NOTE | 2025-02-07 12:23 | OT.OP.TRT ---
Visit Care Team Role Provider Type TRACY Cano Family Provider Non-Staff Primary Care Provider Specialty: Nursing Address: [facility] [address], [place], [address] Email: Brigitte Cervantes MD Attending Provider Non-Staff Referring Provider Specialty: Physical Medicine and Rehab Address: [address] [place], [address] Email: Occupational Therapy Treatment Note OT Outpatient Treatment Note - Adult Start: 12/30/24 13:03 Freq: Status: Active Protocol: Document 02/07/25 12:20 AMS (Rec: 02/07/25 12:23 AMS Desktop) OT Outpatient Adult Treatment Note Session Time Visit Start Time 11:35 Visit Stop Time 12:15 Visit Information Visit Number 03/31; 04/09; visit --> KX modifier Plan of Care Dates 12/30/24 ? 02/10/25 Insurance Information Medicare Setting Treatment Setting Outpatient Care Visit Type Note Type Treatment Note General Information General Information Hernan is 39 years old. Medical history is significant for: paraplegia; anxiety; ADD/ADHD; memory loss/dementia ; depression; dizziness; falls ; hearing problems; back/neck/ jaw pain; neuropathy; seizures ; ASD; TBI/concussion; vision problems; sensory modulation disorder; bilateral rotator cuff pain/discomfort. He reports h/o falls and pressure sores. Medications prescribed are for pain and to address tone/rigidity. Wrist/Hand Pain Assessment Grid completed; indication of 7-9 out of 10 on the pain scale relative to dorsal/volar surfaces of both hands/wrists. QuickDASH UE Outcome Measure Score = 86.36; QuickDASH Sports/Performing Arts Module Score = 75.00. - Subjective Identification Type Name Observations Seen 1:1 for OT treatment session. Report of having a stressful weekend. - Objective Objective Measurements Please refer to below for progress towards established OT goals: Group Home Goals 1. Hernan will be independent with upper extremity home exercise program. - Treatment 1 Descriptor ROM/Sensory feedback. Seated. Yoga 65 cm ball. Sahni bag toss. Balloon. Golfing. N/A 02/07/25 Ball. Overhand throw. UE ROM. Trunk rotation. Yoga ball. Cane. Suspended ball. Exercises 4 Descriptor N/A 02/07/25 Strengthening. Seated. Bilateral rows. 20#. 2 x 10. 30# 1 x 10. Seated. Unilateral/Alternating Sh ext. 20#. 3 x 10. 3 Descriptor Arm pulleys. ROM. x 5 min. 2 Descriptor Angled Trampoline. 500 grams. Seated. R. L. Alt R & L. 4 x 10. 1000 grams. Seated. R. L. Alt R & L. Formation of square. 4 x 10. 3.3#. Seated. R. L. 3 x 10. N/A 01/18/25 Square throw x 2 cycles. 1 Descriptor N/A 02/07/25 UEB. x 10 min seated. Height of arm pedals #3. Distance of seat #11. Forwards direction. - Assessment Assessment of Improvement Good sitting balance w/ yoga ball, as observed w/ sahni bag toss, balloon, and golf (90 degree turn to the right). - Plan Therapy Recommendations Advance per Rehabilitation Protocol
--- NOTE | 2025-02-28 13:22 | OT.OP.DC ---
Visit Care Team Role Provider Type TRACY Cano Family Provider Non-Staff Primary Care Provider Address: [address], [place], [address] Email: Brigitte Cervantes MD Attending Provider Non-Staff Referring Provider Address: [address] [place], [address] Email: OT Outpatient OT Outpatient Adult Evaluation Start: 12/30/24 13:03 Freq: Status: Active Protocol: Document 12/30/24 13:04 AMS (Rec: 12/30/24 13:22 AMS Desktop) General Information - Adult Visit Information Visit Number 10/01; 10/10; visit --> KX modifier Plan of Care Dates 12/30/24 ? 02/10/25 Insurance Medicare Information Session Time Visit Start Time 11:45 Visit Stop Time 15:15 Setting Treatment Setting Outpatient Care Visit Type Note Type Initial Evaluation Identification Identification Yes Confirmed Identification Self Confirmed By Goals Bpm Analyst Goals Bpm Analyst Goals 1. Hernan will be independent with upper extremity home exercise program. Assessment/Plan Assessment Treatment Assessment Hernan is 39 years old. Medical history is significant for: paraplegia; anxiety; ADD/ADHD; memory loss/ dementia; depression; dizziness; falls; hearing problems; back/neck/jaw pain; neuropathy; seizures; ASD ; TBI/concussion; vision problems; sensory modulation disorder; bilateral rotator cuff pain/discomfort. He reports h/o falls and pressure sores. Medications prescribed are for pain and to address tone/rigidity. Wrist/Hand Pain Assessment Grid completed; indication of 7-9 out of 10 on the pain scale relative to dorsal/ volar surfaces of both hands/wrists. QuickDASH UE Outcome Measure Score = 86.36; QuickDASH Sports/ Performing Arts Module Score = 75.00. Hernan presented in standard manual w/c; he is able to manage bilateral brakes and maneuver w/c independently. Past medical documentation indicates that he has an electric w/c and yoga/therapy ball, sensory clouds ( crash pads), peanutball, and a swing. He reportedly has a smart home set-up thru [facility] for lighting and is seeking smart home set-up for entering and exiting the home. He is ambidexturous; he uses R hand for manuevering judie stick of electric w/c; L hand for handwriting. Dwayne, Hernan's caregiver, is available 4 x a week in the mornings; she assists w/ house keeping, meal preparation, grocery shopping and errands. He enjoys richard; he is actively using a racing simulator 4 days a week x 2 hours. Via richard system he is working on hand ROM and eye-hand coordination. He also takes his therapy dog, 'Sara', on walks holding the leash in his hand and/or attaching the leash to his w/c. 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 Does reportedly 'lock' into positions. Functional ROM includes placement of both hands on top of head, (-) inability to place hands on back of head, and (+) placement of bilateral hands on lower back. Approx R 45 degrees R forearm supination ROM vs approx L 75 degrees ROM. Dynamometer wastewater treatment plant chemist strength = 13.0# of force L wastewater treatment plant chemist vs 18.0# of force R wastewater treatment plant chemist. Plan Length of treatment 6 (weeks) Plan of Care Start 12/30/24 Date Plan of Care End 02/10/25 Date Treatment Frequency Once a Week Therapeutic Contents Active Range of Motion,Functional Activities,Home Exercise Program,Neurodevelopment Treatment, Neuromuscular Re-Education,Self-Care,Therapeutic Activities,Therapeutic Exercises Functional Wrist/Hand Scan Hand Side Sensory Assessment Sensory Profile2 OT Outpatient Treatment Note - Adult Start: 12/30/24 13:03 Freq: Status: Active Protocol: Document 02/28/25 13:20 AMS (Rec: 02/28/25 13:22 AMS Desktop) OT Outpatient Adult Treatment Note Visit Information Visit Number 03/31; 04/09; visit --> KX modifier Plan of Care Dates 12/30/24 ? 02/10/25 Insurance Medicare Information Setting Treatment Setting Outpatient Care Visit Type Note Type Discharge Summary - Subjective Observations Hernan Trevizo) has not been seen in the outpatient setting by OT since 02/07/25 and OT POC on ; thus, recommend d/c from outpatient OT and clinician to re-evaluate as deemed appropriate by PCP w / receipt of new referral. - Objective Objective Please refer to below for progress towards established Measurements OT goals: Bpm Analyst Goals D/C ALL GOALS 02/28/25 1. Hernan will be independent with upper extremity home exercise program. - - Assessment Assessment of Hernan (Luis Eduardo) has not been seen in the outpatient Improvement setting by OT since 02/07/25 and OT POC on ; thus, recommend d/c from outpatient OT and clinician to re-evaluate as deemed appropriate by PCP w / receipt of new referral. - Plan Therapy Discharge from Occupational Therapy Recommendations
== END 2025-03-04 12:56 | disposition home or self-care (01) ==
LOC: OT 11:30
PROVIDERS: Family Provider Nurse Practitioner Family; PCP Nurse Practitioner Family; Referring Provider Student in an Organized Health Care Education/Training Program; Visit Provider Student in an Organized Health Care Education/Training Program
DX: G80.0 Spastic quadriplegic cerebral palsy (principal); R26.2 Difficulty in walking, not elsewhere classified
CPT/HCPCS: 97110; 97165; 97530

== ENCOUNTER 2025-02-10 13:00 | Outpatient (RCR) | payer MEDICARE, MEDICAID, SELFPAY ==
--- NOTE | 2025-01-03 14:06 | PT.OIE ---
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) Difficulty in walking, not elsewhere classified (01/03/25) Past Medical History (Last Reviewed 05/20/24 @ 19:09 by Damaso Nice DO) Depression Encounter for feeding tube placement GERD (gastroesophageal reflux disease) High blood pressure Inflammatory bowel disease Migraine headache Neurological disease Parkinsons disease Seizure disorder Past Surgical History (Last Reviewed 05/20/24 @ 19:09 by Damaso Nice DO) H/O circumcision Vasectomy status Visit Care Team Role Provider Type TRACY Cano Family Provider Non-Staff Primary Care Provider Specialty: Nursing Address: [facility] [address], [place], [address] Email: Brigitte Cervantes MD Attending Provider Non-Staff Referring Provider Specialty: Physical Medicine and Rehab Address: [address] [place] [address], [id number] Email: Physical Therapy Initial Evaluation PT-OP-A Visit Information Start: 01/03/25 10:34 Freq: Status: Active Protocol: Document 01/03/25 12:00 KW (Rec: 01/03/25 14:05 KW Laptop) Out-Patient Physical Therapy Visit Information Visit Information Visit Type Initial Evaluation Visit Start Time 11:30 Visit Stop Time 12:15 Visit Number 1 Number of BUSINESS MANAGEMENT PROFESSOR Visits 0 Evaluation Information Evaluation Date 01/03/25 PT-OP-B Current Condition Start: 01/03/25 10:34 Freq: Status: Active Protocol: Document 01/03/25 12:00 KW (Rec: 01/03/25 14:05 KW Laptop) Current Condition History of Current Condition Onset Date chronic Current Complaints pain and Tone History of Current Condition 39 y/o male with complex PMHx, Autism spectrum disorder, CP with fluctuating tone that causes severe pain, back in PT to help with Tone and pain management. He has a pre-op visit 01/24/25 for a spinal or brain stimulator Treatment Goals Patient/Caregiver Goals reduce muscle tone and pain Prior Functional Status Baseline Function- ADL's Needs Assist Baseline Function- Mobility Needs Assist Baseline Function- Other Luis Eduardo has a caregiver 25% of the time, uses a power and manual W/C, has equipment at home for home therapy: swing, balls, PT-OP-C Subjective Start: 01/03/25 10:34 Freq: Status: Active Protocol: Document 01/03/25 12:00 KW (Rec: 01/03/25 14:05 KW Laptop) OP-PT Subjective Patient Comments Patient Comments recent and frequent ER visits for injections for pain and tone OP-PT Pain Assessment Pain Assessment Grid Paper Pain Assessment Grid Completed Yes Location Generalized Scale Used Numeric (0 - 10) Description Aching,Cramping Frequency Frequent Pain Duration 8 Pain Aggravating Factors ADL's,Activity,Standing Pain Alleviating Factors Cold,Heat,Medication,Changing Position Other Pain Alleviating Factors PNF exercises PT-OP-D Balance Start: 01/03/25 10:34 Freq: Status: Active Protocol: Document 01/03/25 12:00 KW (Rec: 01/03/25 14:05 KW Laptop) Balance Tests Function in Sitting Test Function In Sitting Test PT-OP-E Functional Tests Start: 01/03/25 10:34 Freq: Status: Active Protocol: Document 01/03/25 14:05 KW (Rec: 01/03/25 14:06 KW Laptop) Functional Tests 30 Second Sit to Stand Test Score 1 Comments unstable PT-OP-G Mobility & Gait Start: 01/03/25 10:34 Freq: Status: Active Protocol: Document 01/03/25 12:00 KW (Rec: 01/03/25 14:05 KW Laptop) OP Mobility Evaluation Bed Mobility Rolling independent Supine to and from Sit independent Transfers Bed to Chair Transfers independent Functional Movements Lifting and Carrying limited by 90 degree shoulder flexion in sitting unable to carry in standing, holds objects in lap while in WC Wheelchair Management Type of Wheelchair manual, custom Special Equipment Roho cushion Assessment Details chooses to not use foot rests but holds legs up off of ground PT-OP-Q Treatments Start: 01/03/25 10:34 Freq: Status: Active Protocol: Document 01/03/25 12:00 KW (Rec: 01/03/25 14:05 KW Laptop) Therapeutic Exercises Supine Exercises 1 Supine Exercise Name LTR with physioball Side bilateral PT-OP-T Assessment and Plan Start: 01/03/25 10:34 Freq: Status: Active Protocol: Document 01/03/25 12:00 KW (Rec: 01/03/25 14:05 KW Laptop) Physical Therapy Assessment Rehab Potential Rehabilitation Potential Fair Evaluation Complexity Number of Personal Factors/Comorbidities 3 or More Number of Body Systems Impaired 4 or More Clinical Presentation at Evaluation Evolving Impairments Impairments Activity Tolerance,Balance, Functional Activities, Functional Mobility,Pain,ROM, Tone Goals Two Impairment Function in sitting Impairment . Short Term Goal (STG) improved function in sitting test from to 4556 STG Duration 6 weeks One Impairment increased muscle tone impacting PROM of joints Impairment . Short Term Goal (STG) patient demonstrates HEP techniques to manage tone STG Duration 6 weeks Assessment Summary Assessment pleasant 39 y/o male back in PT for management of muscle tone and pain while he waits for a pre-op [facility] visit for possible brain/spine stimulator. Luis Eduardo has a caregiver to help with some exercises, has equipment and is also seeing OT. We will limit visits to 6 at this time . 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
--- NOTE | 2025-01-11 17:25 | PT.OTN ---
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) Difficulty in walking, not elsewhere classified (01/11/25) Physical Therapy Treatment Note PT-OP-A Visit Information Start: 01/03/25 10:34 Freq: Status: Active Protocol: Document 01/11/25 11:37 NBM (Rec: 01/11/25 12:34 NBM Laptop) Out-Patient Physical Therapy Visit Information Visit Information Visit Type Treatment Note Visit Start Time 11:38 Visit Stop Time 12:18 Visit Number 2 Number of SHAREPOINT DESIGNER DEVELOPER Visits 1 PT-OP-B Current Condition Start: 01/03/25 10:34 Freq: Status: Active Protocol: Document 01/03/25 12:00 KW (Rec: 01/03/25 14:05 KW Laptop) Current Condition History of Current Condition Onset Date chronic Current Complaints pain and Tone History of Current Condition 39 y/o male with complex PMHx, Autism spectrum disorder, CP with fluctuating tone that causes severe pain, back in PT to help with Tone and pain management. He has a pre-op visit 01/24/25 for a spinal or brain stimulator Treatment Goals Patient/Caregiver Goals reduce muscle tone and pain Prior Functional Status Baseline Function- ADL's Needs Assist Baseline Function- Mobility Needs Assist Baseline Function- Other Luis Eduardo has a caregiver 25% of the time, uses a power and manual W/C, has equipment at home for home therapy: swing, balls, PT-OP-C Subjective Start: 01/03/25 10:34 Freq: Status: Active Protocol: Document 01/11/25 11:37 NBM (Rec: 01/11/25 12:34 NBM Laptop) OP-PT Subjective Patient Comments Patient Comments Luis Eduardo reports he finally got adaptive driving controls. There are three pedals for legs, and hand controls as well but he tries to use leg pedals more. He can go up to 2 hours and then his legs stop responding which he thinks is because he's overdone it. PT-OP-D Balance Start: 01/03/25 10:34 Freq: Status: Active Protocol: Document 01/03/25 12:00 KW (Rec: 01/03/25 14:05 KW Laptop) Balance Tests Function in Sitting Test Function In Sitting Test 28/56 PT-OP-E Functional Tests Start: 01/03/25 10:34 Freq: Status: Active Protocol: Document 01/03/25 14:05 KW (Rec: 01/03/25 14:06 KW Laptop) Functional Tests 30 Second Sit to Stand Test Score 1 Comments unstable PT-OP-G Mobility & Gait Start: 01/03/25 10:34 Freq: Status: Active Protocol: Document 01/03/25 12:00 KW (Rec: 01/03/25 14:05 KW Laptop) OP Mobility Evaluation Bed Mobility Rolling independent Supine to and from Sit independent Transfers Bed to Chair Transfers independent Functional Movements Lifting and Carrying limited by 90 degree shoulder flexion in sitting unable to carry in standing, holds objects in lap while in WC Wheelchair Management Type of Wheelchair manual, custom Special Equipment Roho cushion Assessment Details chooses to not use foot rests but holds legs up off of ground PT-OP-Q Treatments Start: 01/03/25 10:34 Freq: Status: Active Protocol: Document 01/11/25 11:37 NBM (Rec: 01/11/25 12:34 NBM Laptop) Therapeutic Exercises Supine Exercises DKTC Supine Exercise Name manual stretch Side bilateral Reps/Minutes 45 Hamstring curls Side bilateral Equipment Used 55 cm Reps/Minutes AROM x4, PROM x4 Comments Pt intiates, then freezes in LE flexion position,SHAREPOINT DESIGNER DEVELOPER manually performs PROM 1 Supine Exercise Name LTR with physioball Side bilateral Equipment Used 55 cm Therapeutic Activity Therapeutic Activity transfer Name pt intiiated end of session Reps/Minutes x1 Comments L sidelying to sitting EOB w/ UE push off of peanut ball - demos increasing hip mobility with segmented motion of trunk then LEs, which leaves LEs remaining on mat table and trunk upright, then pt brings LEs down into sitting. Neuro Re-Education Treatment Movement Re-Education Movement Re-education Activities // bars: balloon volleyball> 2# wrist weights > dowel: 1. on YONATAN 2# wrist weights > dowel 2. tilt board a/p and m/l 2 foam DL>SL stance (occ SHAREPOINT DESIGNER DEVELOPER assist for RLE knee flexion) w / ball throw/catch 1HHA>no HOT SHOT cues for upright posture and excessive R lateral trunk lean Fwd/Bwd ambulation on uneven surfaces: therapads>and therapods>and hurdles, plus cognitive on motor dual tasking. Seated on peanut ball SBA Lvl 3 tb: PF B in position of pedals, SHAREPOINT DESIGNER DEVELOPER assist for RLE knee extension prn PT-OP-T Assessment and Plan Start: 01/03/25 10:34 Freq: Status: Active Protocol: Document 01/11/25 11:37 NBM (Rec: 01/11/25 12:34 NBM Laptop) Physical Therapy Assessment Goals Two Impairment Function in sitting Impairment . Short Term Goal (STG) improved function in sitting test from 28/56 to 45/56 STG Duration 6 weeks One Impairment increased muscle tone impacting PROM of joints Impairment . Short Term Goal (STG) patient demonstrates HEP techniques to manage tone STG Duration 6 weeks Assessment Summary Assessment Luis Eduardo is engaged with PT today and treatment focus in parallel bars on movement re- education utilizing forward and backward tandem ambulation on uneven surfaces with dual cognitive on motor tasking. Pt demos one instance of standing on LLE and RLE moves from knee flexion to knee extension position but remains in knee flexion when manually placed into position by this SHAREPOINT DESIGNER DEVELOPER. In supine he is able to initiate B hamstring curls on 55cm therapy ball x4 then freezes with lower extremities in flexion position; however this SHAREPOINT DESIGNER DEVELOPER is able to perform PROM hamstring curls for bilateral LEs. 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
--- NOTE | 2025-01-18 15:25 | PT.OTN ---
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) Difficulty in walking, not elsewhere classified (01/25/25) Physical Therapy Treatment Note PT-OP-A Visit Information Start: 01/03/25 10:34 Freq: Status: Active Protocol: Document 01/18/25 13:51 NBM (Rec: 01/25/25 11:04 NBM Laptop) Out-Patient Physical Therapy Visit Information Visit Information Visit Type Treatment Note Visit Start Time 13:51 Visit Stop Time 14:31 Visit Number 3 Number of GAME DESIGN INSTRUCTOR Visits 2 Evaluation Information Evaluation Date 01/03/25 PT-OP-B Current Condition Start: 01/03/25 10:34 Freq: Status: Active Protocol: Document 01/03/25 12:00 KW (Rec: 01/03/25 14:05 KW Laptop) Current Condition History of Current Condition Onset Date chronic Current Complaints pain and Tone History of Current Condition 39 y/o male with complex PMHx, Autism spectrum disorder, CP with fluctuating tone that causes severe pain, back in PT to help with Tone and pain management. He has a pre-op visit 01/24/25 for a spinal or brain stimulator Treatment Goals Patient/Caregiver Goals reduce muscle tone and pain Prior Functional Status Baseline Function- ADL's Needs Assist Baseline Function- Mobility Needs Assist Baseline Function- Other Luis Eduardo has a caregiver 25% of the time, uses a power and manual W/C, has equipment at home for home therapy: swing, balls, PT-OP-C Subjective Start: 01/03/25 10:34 Freq: Status: Active Protocol: Document 01/18/25 13:51 NBM (Rec: 01/25/25 11:04 NBM Laptop) OP-PT Subjective Patient Comments Patient Comments Luis Eduardo reports no new changes . His [facility] consultation is mid-January. PT-OP-D Balance Start: 01/03/25 10:34 Freq: Status: Active Protocol: Document 01/03/25 12:00 KW (Rec: 01/03/25 14:05 KW Laptop) Balance Tests Function in Sitting Test Function In Sitting Test PT-OP-E Functional Tests Start: 01/03/25 10:34 Freq: Status: Active Protocol: Document 01/03/25 14:05 KW (Rec: 01/03/25 14:06 KW Laptop) Functional Tests 30 Second Sit to Stand Test Score 1 Comments unstable PT-OP-G Mobility & Gait Start: 01/03/25 10:34 Freq: Status: Active Protocol: Document 01/03/25 12:00 KW (Rec: 01/03/25 14:05 KW Laptop) OP Mobility Evaluation Bed Mobility Rolling independent Supine to and from Sit independent Transfers Bed to Chair Transfers independent Functional Movements Lifting and Carrying limited by 90 degree shoulder flexion in sitting unable to carry in standing, holds objects in lap while in WC Wheelchair Management Type of Wheelchair manual, custom Special Equipment Roho cushion Assessment Details chooses to not use foot rests but holds legs up off of ground PT-OP-Q Treatments Start: 01/03/25 10:34 Freq: Status: Active Protocol: Document 01/18/25 13:51 NBM (Rec: 01/25/25 11:04 NBM Laptop) Therapeutic Exercises Sitting Exercises ankle strengthening Sitting Exercise Name resisted PF, DF, EV,IV pressing the gas, brake, clutch Side bilateral Resistance lvl 3 Tb Equipment Used seated in w/c Comments R>L focus, good response time to verbal direction Manual Therapy Treatment Consent Patient gave verbal consent for manual Yes treatment Manual Techniques Hamstring Stretch Type Hamstrings/ gastrocnemius manual stretch Body Location Bilateral Body Position Sitting Reps/Duration 30 x2 ea Comments end of session, positive feedback response. Neuro Re-Education Treatment Movement Re-Education Movement Re-education Activities // bars and gait belt: Fwd/Bwd ambulation on uneven surfaces w/ SL stance focus: -Pt demos occasional locking of R knee flexion straight into extension w/ slight adduction across midline which improves with cognitive on motor dual tasking: colored foot prints progressed to increase stride length. -added cones for tapping> stepping over. -added golf balls to cones for gentle pushing off with toe, returning to standing w/ equal weightbearing, then stepping over with same LE. -replaced cones with hurdles, then added therapads. Going backward is easier for some reason. cues for R heel strike into toe-off, upright posture, and gluteal activation. - Sitting>Standing stomping on bubbles B - cues for increasing R hip flexion. PT-OP-T Assessment and Plan Start: 01/03/25 10:34 Freq: Status: Active Protocol: Document 01/18/25 13:51 NBM (Rec: 01/25/25 11:04 [facility] Laptop) Physical Therapy Assessment Goals Two Impairment Function in sitting Impairment . Short Term Goal (STG) improved function in sitting test from to STG Duration 6 weeks One Impairment increased muscle tone impacting PROM of joints Impairment . Short Term Goal (STG) patient demonstrates HEP techniques to manage tone STG Duration 6 weeks Assessment Summary Assessment Brief discussion start of session of pt and caregiver requesting more visits and Plan of Care for 6 visits as pre-hab to [facility] consultation, with further questions to be directed to evaluating PT, and pt expresses understanding. Luis Eduardo rosas occasional locking of R knee flexion straight into extension w/ slight adduction across midline which improves with cognitive on motor dual tasking. He demos improving coordination with knocking golf balls off of cones then stepping over cones. He demos good response time to verbal direction for bilateral resisted ankle strengthening in all directions. 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
--- NOTE | 2025-01-25 12:31 | PT.OTN ---
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) Difficulty in walking, not elsewhere classified (01/25/25) Physical Therapy Treatment Note PT-OP-A Visit Information Start: 01/03/25 10:34 Freq: Status: Active Protocol: Document 01/25/25 11:25 AB (Rec: 01/25/25 12:30 AB Laptop) Out-Patient Physical Therapy Visit Information Visit Information Visit Type Treatment Note Visit Start Time 11:32 Visit Stop Time 12:15 Visit Number 4 Number of POCKETS AND PIECES NECKTIE OPERATOR Visits 3 Evaluation Information Evaluation Date 01/03/25 PT-OP-B Current Condition Start: 01/03/25 10:34 Freq: Status: Active Protocol: Document 01/03/25 12:00 KW (Rec: 01/03/25 14:05 KW Laptop) Current Condition History of Current Condition Onset Date chronic Current Complaints pain and Tone History of Current Condition 39 y/o male with complex PMHx, Autism spectrum disorder, CP with fluctuating tone that causes severe pain, back in PT to help with Tone and pain management. He has a pre-op visit 01/24/25 for a spinal or brain stimulator Treatment Goals Patient/Caregiver Goals reduce muscle tone and pain Prior Functional Status Baseline Function- ADL's Needs Assist Baseline Function- Mobility Needs Assist Baseline Function- Other Luis Eduardo has a caregiver 25% of the time, uses a power and manual W/C, has equipment at home for home therapy: swing, balls, PT-OP-C Subjective Start: 01/03/25 10:34 Freq: Status: Active Protocol: Document 01/25/25 11:25 AB (Rec: 01/25/25 12:30 AB Laptop) OP-PT Subjective Patient Comments Patient Comments Luis Eduardo reports he is the same . PT-OP-D Balance Start: 01/03/25 10:34 Freq: Status: Active Protocol: Document 01/03/25 12:00 KW (Rec: 01/03/25 14:05 KW Laptop) Balance Tests Function in Sitting Test Function In Sitting Test PT-OP-E Functional Tests Start: 01/03/25 10:34 Freq: Status: Active Protocol: Document 01/03/25 14:05 KW (Rec: 01/03/25 14:06 KW Laptop) Functional Tests 30 Second Sit to Stand Test Score 1 Comments unstable PT-OP-G Mobility & Gait Start: 01/03/25 10:34 Freq: Status: Active Protocol: Document 01/03/25 12:00 KW (Rec: 01/03/25 14:05 KW Laptop) OP Mobility Evaluation Bed Mobility Rolling independent Supine to and from Sit independent Transfers Bed to Chair Transfers independent Functional Movements Lifting and Carrying limited by 90 degree shoulder flexion in sitting unable to carry in standing, holds objects in lap while in WC Wheelchair Management Type of Wheelchair manual, custom Special Equipment Roho cushion Assessment Details chooses to not use foot rests but holds legs up off of ground PT-OP-Q Treatments Start: 01/03/25 10:34 Freq: Status: Active Protocol: Document 01/25/25 11:25 AB (Rec: 01/25/25 12:30 AB Laptop) Therapeutic Exercises Sitting Exercises breathing with foam roll press Sitting Exercise Name bilateral UE press into foam roller on floor with breathing Reps/Minutes 2 min with hands 1 min on forearms Comments Verbal cues for in through nose out through mouth Rythmic stabilization with dowel Sitting Exercise Name all directions Reps/Minutes verbal cues to hold seated posture/seated away from backrest Comments 4 min, monitored for pain core warm up Sitting Exercise Name 1. X 5 end ROM flexion 2. trunk rot Reps/Minutes X5 rounds Comments verbal and visual cues Seated breathing from diaphgram Sitting Exercise Name seated with pillow on lap, VC to expand core into pillows. Side bilateral Equipment Used HEP Reps/Minutes 5 min Comments verbal, tactile cues use of mirror Neuro Re-Education Treatment Balance Activities step up taps Details CGA Surface tap to foam pad Reps/Duration X12 retro stepping Details CGA Reps/Duration 5 feet X 5 hands above bars post finger slide first 2 trials tandem stepping Details CGA Reps/Duration 5 feet X 5 fwd, hands above bars post first 2 trials one finger kick ball Details CGA initiates with hands above bars Reps/Duration 4-5 min ball toss Details on and off foam CGA initiates with hands above bars Reps/Duration 5 min PT-OP-T Assessment and Plan Start: 01/03/25 10:34 Freq: Status: Active Protocol: Document 01/25/25 11:25 AB (Rec: 01/25/25 12:30 AB Laptop) Physical Therapy Assessment Goals Two Impairment Function in sitting Impairment . Short Term Goal (STG) improved function in sitting test from to 45/56 STG Duration 6 weeks One Impairment increased muscle tone impacting PROM of joints Impairment . Short Term Goal (STG) patient demonstrates HEP techniques to manage tone STG Duration 6 weeks Assessment Summary Assessment Occasional instances of holding LE in air R LE during seated and standing exercises, reporting tone limiting ability to place LE on floor. Patient requires mirror, and VC to look at hand to determine core expanding with breathing as he reports he cannot feel it. 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
--- NOTE | 2025-02-02 12:23 | PT.OTN ---
Current Diagnoses Spastic quadriplegic cerebral palsy (02/02/25) Difficulty in walking, not elsewhere classified (02/02/25) Physical Therapy Treatment Note PT-OP-A Visit Information Start: 01/03/25 10:34 Freq: Status: Active Protocol: Document 02/02/25 12:18 KW (Rec: 02/02/25 12:23 KW Laptop) Out-Patient Physical Therapy Visit Information Visit Information Visit Type Treatment Note Visit Start Time 11:30 Visit Stop Time 12:15 Visit Number 5 Evaluation Information Evaluation Date 01/03/25 PT-OP-B Current Condition Start: 01/03/25 10:34 Freq: Status: Active Protocol: Document 01/03/25 12:00 KW (Rec: 01/03/25 14:05 KW Laptop) Current Condition History of Current Condition Onset Date chronic Current Complaints pain and Tone History of Current Condition 39 y/o male with complex PMHx, Autism spectrum disorder, CP with fluctuating tone that causes severe pain, back in PT to help with Tone and pain management. He has a pre-op visit 01/24/25 for a spinal or brain stimulator Treatment Goals Patient/Caregiver Goals reduce muscle tone and pain Prior Functional Status Baseline Function- ADL's Needs Assist Baseline Function- Mobility Needs Assist Baseline Function- Other Luis Eduardo has a caregiver 25% of the time, uses a power and manual W/C, has equipment at home for home therapy: swing, balls, PT-OP-C Subjective Start: 01/03/25 10:34 Freq: Status: Active Protocol: Document 02/02/25 12:18 KW (Rec: 02/02/25 12:23 KW Laptop) OP-PT Subjective Patient Comments Patient Comments found out he is not a candidate for DBS but is considering LE botox and feels he would need to continue to do PT if he started BOTOX injections PT-OP-D Balance Start: 01/03/25 10:34 Freq: Status: Active Protocol: Document 01/03/25 12:00 KW (Rec: 01/03/25 14:05 KW Laptop) Balance Tests Function in Sitting Test Function In Sitting Test PT-OP-E Functional Tests Start: 01/03/25 10:34 Freq: Status: Active Protocol: Document 01/03/25 14:05 KW (Rec: 01/03/25 14:06 KW Laptop) Functional Tests 30 Second Sit to Stand Test Score 1 Comments unstable PT-OP-G Mobility & Gait Start: 01/03/25 10:34 Freq: Status: Active Protocol: Document 01/03/25 12:00 KW (Rec: 01/03/25 14:05 KW Laptop) OP Mobility Evaluation Bed Mobility Rolling independent Supine to and from Sit independent Transfers Bed to Chair Transfers independent Functional Movements Lifting and Carrying limited by 90 degree shoulder flexion in sitting unable to carry in standing, holds objects in lap while in WC Wheelchair Management Type of Wheelchair manual, custom Special Equipment Roho cushion Assessment Details chooses to not use foot rests but holds legs up off of ground PT-OP-Q Treatments Start: 01/03/25 10:34 Freq: Status: Active Protocol: Document 02/02/25 12:18 KW (Rec: 02/02/25 12:23 KW Laptop) Therapeutic Exercises Supine Exercises DKTC Supine Exercise Name manual stretch Side bilateral Reps/Minutes 45 Hamstring curls Side bilateral Equipment Used 55 cm Reps/Minutes AROM x4, PROM x4 Comments Pt intiates, then freezes in LE flexion position,CORRECTIONAL CAPTAIN manually performs PROM Sitting Exercises breathing with foam roll press Sitting Exercise Name bilateral UE press into foam roller on floor with breathing Reps/Minutes 2 min with hands 1 min on forearms Comments Verbal cues for in through nose out through mouth Rythmic stabilization with dowel Sitting Exercise Name all directions Reps/Minutes verbal cues to hold seated posture/seated away from backrest Comments 4 min, monitored for pain core warm up Sitting Exercise Name 1. X 5 end ROM flexion 2. trunk rot Reps/Minutes X5 rounds Comments verbal and visual cues Seated breathing from diaphgram Sitting Exercise Name seated with pillow on lap, VC to expand core into pillows. Side bilateral Equipment Used HEP Reps/Minutes 5 min Comments verbal, tactile cues use of mirror ankle strengthening Sitting Exercise Name resisted PF, DF, EV,IV pressing the gas, brake, clutch Side bilateral Resistance lvl 3 Tb Equipment Used seated in w/c Comments R>L focus, good response time to verbal direction Standing Exercises gastroc stretch Standing Exercise Name YONATAN gastroc stretch Reps/Minutes 1 min Therapeutic Activity Therapeutic Activity transfer Reps/Minutes x1 Comments L sidelying to sitting EOB w/ UE push off of peanut ball - demos increasing hip mobility with segmented motion of trunk then LEs, which leaves LEs remaining on mat table and trunk upright, then pt brings LEs down into sitting. PLANK on B BOSU 1 min with external challenges PT-OP-T Assessment and Plan Start: 01/03/25 10:34 Freq: Status: Active Protocol: Document 02/02/25 12:18 KW (Rec: 02/02/25 12:23 KW Laptop) Physical Therapy Assessment Goals Two Impairment Function in sitting Impairment . Short Term Goal (STG) improved function in sitting test from to 45 STG Duration 6 weeks One Impairment increased muscle tone impacting PROM of joints Impairment . Short Term Goal (STG) patient demonstrates HEP techniques to manage tone STG Duration 6 weeks Assessment Summary Assessment nice improvement in LE function and participation in PT session, taking on good challenges without complaint. He has a lot of stress in his life with divorce proceedings that are likely impacting tone Physical Therapy Plan Frequency and Duration Frequency of Treatment 1x/Week Duration of treatment (weeks) 6 Plan of Care Start Date 01/03/25 Plan of Care End Date 03/05/25 Therapeutic Interventions Therapeutic Interventions Balance Training,Home Exercise Program,Neuromuscular Re- education,Self-Care/Home Management,Therapeutic Activities,Therapeutic Exercises Next Visit Focus/Plan Next Note Type Treatment Note Next Visit Plan working in // bars try nu step possibly
--- NOTE | 2025-02-10 13:54 | PT.OTN ---
Current Diagnoses Spastic quadriplegic cerebral palsy (02/10/25) Difficulty in walking, not elsewhere classified (02/10/25) Physical Therapy Treatment Note PT-OP-A Visit Information Start: 01/03/25 10:34 Freq: Status: Active Protocol: Document 02/10/25 13:06 KW (Rec: 02/10/25 13:54 KW Laptop) Out-Patient Physical Therapy Visit Information Visit Information Visit Type Discharge Summary Visit Start Time 13:00 Visit Stop Time 13:45 Visit Number 6 Number of INSTRUCTIONAL WRITER Visits 3 Evaluation Information Evaluation Date 01/03/25 PT-OP-B Current Condition Start: 01/03/25 10:34 Freq: Status: Active Protocol: Document 02/10/25 13:06 KW (Rec: 02/10/25 13:54 KW Laptop) Current Condition History of Current Condition Onset Date chronic Current Complaints pain and Tone History of Current Condition 39 y/o male with complex PMHx, Autism spectrum disorder, CP with fluctuating tone that causes severe pain, back in PT to help with Tone and pain management. He has a pre-op visit 01/24/25 for a spinal or brain stimulator Treatment Goals Patient/Caregiver Goals reduce muscle tone and pain Prior Functional Status Baseline Function- ADL's Needs Assist Baseline Function- Mobility Needs Assist Baseline Function- Other Luis Eduardo has a caregiver 25% of the time, uses a power and manual W/C, has equipment at home for home therapy: swing, balls, elastic bands. Has done YOGA and equine therapy in past. PT-OP-C Subjective Start: 01/03/25 10:34 Freq: Status: Active Protocol: Document 02/10/25 13:06 KW (Rec: 02/10/25 13:54 KW Laptop) OP-PT Subjective Patient Comments Patient Comments found out he is not a candidate for DBS but is considering LE botox and feels he would need to continue to do PT if he started BOTOX injections has had incredible stress in social life with divorce proceedings. OP-PT Pain Assessment Pain Assessment Grid Paper Pain Assessment Grid Completed Yes Location Generalized Scale Used Numeric (0 - 10) Description Aching,Cramping Frequency Frequent Pain Duration 8 Pain Aggravating Factors ADL's,Activity,Standing Pain Alleviating Factors Cold,Heat,Medication,Changing Position Other Pain Alleviating Factors PNF exercises PT-OP-D Balance Start: 01/03/25 10:34 Freq: Status: Active Protocol: Document 02/10/25 13:06 KW (Rec: 02/10/25 13:54 KW Laptop) Balance Tests Function in Sitting Test Function In Sitting Test 45/56 PT-OP-E Functional Tests Start: 01/03/25 10:34 Freq: Status: Active Protocol: Document 01/03/25 14:05 KW (Rec: 01/03/25 14:06 KW Laptop) Functional Tests 30 Second Sit to Stand Test Score 1 Comments unstable PT-OP-G Mobility & Gait Start: 01/03/25 10:34 Freq: Status: Active Protocol: Document 02/10/25 13:06 KW (Rec: 02/10/25 13:54 KW Laptop) OP Mobility Evaluation Bed Mobility Rolling independent Supine to and from Sit independent Transfers Bed to Chair Transfers independent Functional Movements Lifting and Carrying limited by 90 degree shoulder flexion in sitting, although full PROM B UE shoulders unable to carry in standing, holds objects in lap while in WC Wheelchair Management Type of Wheelchair manual, custom Special Equipment Roho cushion Assessment Details chooses to not use foot rests but holds legs up off of ground OP Gait Assessment Gait Gait Assistance Required: Contact Guard Assist Distance (Feet) 40 Comments Gait Comments adductor tone PT-OP-Q Treatments Start: 01/03/25 10:34 Freq: Status: Active Protocol: Document 02/10/25 13:06 KW (Rec: 02/10/25 13:54 KW Laptop) Therapeutic Exercises Supine Exercises DKTC Supine Exercise Name manual stretch Side bilateral Reps/Minutes 45 Hamstring curls Side bilateral Equipment Used 55 cm Reps/Minutes AROM x4, PROM x4 Comments Pt intiates, then freezes in LE flexion position,INSTRUCTIONAL WRITER manually performs PROM Sitting Exercises breathing with foam roll press Sitting Exercise Name bilateral UE press into foam roller on floor with breathing Reps/Minutes 2 min with hands 1 min on forearms Comments Verbal cues for in through nose out through mouth Rythmic stabilization with dowel Sitting Exercise Name all directions Reps/Minutes verbal cues to hold seated posture/seated away from backrest Comments 4 min, monitored for pain Seated breathing from diaphgram Sitting Exercise Name seated with pillow on lap, VC to expand core into pillows. Side bilateral Equipment Used HEP Reps/Minutes 5 min Comments verbal, tactile cues use of mirror ankle strengthening Sitting Exercise Name resisted PF, DF, EV,IV pressing the gas, brake, clutch Side bilateral Resistance lvl 3 Tb Equipment Used seated in w/c Comments R>L focus, good response time to verbal direction Standing Exercises gastroc stretch Standing Exercise Name YONATAN gastroc stretch Reps/Minutes 1 min Neuro Re-Education Treatment Balance Activities step up taps Details CGA Surface tap to foam pad Reps/Duration X12 retro stepping Details CGA Reps/Duration 5 feet X 5 hands above bars post finger slide first 2 trials tandem stepping Details CGA Reps/Duration 5 feet X 5 fwd, hands above bars post first 2 trials one finger kick ball Details CGA initiates with hands above bars Reps/Duration 4-5 min ball toss Details on and off foam CGA initiates with hands above bars Reps/Duration 5 min Movement Re-Education Movement Re-education Activities // bars and gait belt: Fwd/Bwd ambulation on uneven surfaces w/ SL stance focus: -Pt demos occasional locking of R knee flexion straight into extension w/ slight adduction across midline which improves with cognitive on motor dual tasking: colored foot prints progressed to increase stride length. -added cones for tapping> stepping over. -added golf balls to cones for gentle pushing off with toe, returning to standing w/ equal weightbearing, then stepping over with same LE. -replaced cones with hurdles, then added therapads. Going backward is easier for some reason. cues for R heel strike into toe-off, upright posture, and gluteal activation. kicking of ball in sitting PT-OP-T Assessment and Plan Start: 01/03/25 10:34 Freq: Status: Active Protocol: Document 02/10/25 13:06 KW (Rec: 02/10/25 13:54 KW Laptop) Physical Therapy Assessment Rehab Potential Rehabilitation Potential Fair Goals Two Impairment Function in sitting Impairment . Short Term Goal (STG) improved function in sitting test from 2856 to 45/56 - MET STG Duration 6 weeks One Impairment increased muscle tone impacting PROM of joints - Impairment . Short Term Goal (STG) patient demonstrates HEP techniques to manage tone - MET STG Duration 6 weeks Assessment Summary Assessment patient has been compliant with all PT visits, goals met for this round of PT. He would greatly benefit from an aquatic program, equine therapy or adaptive athletic program for interaction with peers. Physical Therapy Plan Therapeutic Interventions Therapeutic Interventions Balance Training,Home Exercise Program,Neuromuscular Re- education,Self-Care/Home Management,Therapeutic Activities,Therapeutic Exercises Next Visit Focus/Plan Next Note Type Discharge Summary
--- NOTE | 2025-02-17 08:13 | PT.OPDS ---
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, [place], [address] Email: Brigitte Cervantes MD Attending Provider Non-Staff Referring Provider Specialty: Physical Medicine and Rehab Address: [address] [place], [address] Email: Visit Number Visit Number 6 Discharge Summary PT-OP-B Current Condition Start: 01/03/25 10:34 Freq: Status: Active Protocol: Document 02/10/25 13:06 KW (Rec: 02/10/25 13:54 KW Laptop) Current Condition History of Current Condition Onset Date chronic Current Complaints pain and Tone History of Current Condition 39 y/o male with complex PMHx, Autism spectrum disorder, CP with fluctuating tone that causes severe pain, back in PT to help with Tone and pain management. He has a pre-op visit 01/24/25 for a spinal or brain stimulator Treatment Goals Patient/Caregiver Goals reduce muscle tone and pain Prior Functional Status Baseline Function- ADL's Needs Assist Baseline Function- Mobility Needs Assist Baseline Function- Other Luis Eduardo has a caregiver 25% of the time, uses a power and manual W/C, has equipment at home for home therapy: swing, balls, elastic bands. Has done YOGA and equine therapy in past. PT-OP-C Subjective Start: 01/03/25 10:34 Freq: Status: Active Protocol: Document 02/10/25 13:06 KW (Rec: 02/10/25 13:54 KW Laptop) OP-PT Subjective Patient Comments Patient Comments found out he is not a candidate for DBS but is considering LE botox and feels he would need to continue to do PT if he started BOTOX injections has had incredible stress in social life with divorce proceedings. OP-PT Pain Assessment Pain Assessment Grid Paper Pain Assessment Grid Completed Yes Location Generalized Scale Used Numeric (0 - 10) Description Aching,Cramping Frequency Frequent Pain Duration 8 Pain Aggravating Factors ADL's,Activity,Standing Pain Alleviating Factors Cold,Heat,Medication,Changing Position Other Pain Alleviating Factors PNF exercises PT-OP-D Balance Start: 01/03/25 10:34 Freq: Status: Active Protocol: Document 02/10/25 13:06 KW (Rec: 02/10/25 13:54 KW Laptop) Balance Tests Function in Sitting Test Function In Sitting Test 45/56 PT-OP-E Functional Tests Start: 01/03/25 10:34 Freq: Status: Active Protocol: Document 01/03/25 14:05 KW (Rec: 01/03/25 14:06 KW Laptop) Functional Tests 30 Second Sit to Stand Test Score 1 Comments unstable PT-OP-G Mobility & Gait Start: 01/03/25 10:34 Freq: Status: Active Protocol: Document 02/10/25 13:06 KW (Rec: 02/10/25 13:54 KW Laptop) OP Mobility Evaluation Bed Mobility Rolling independent Supine to and from Sit independent Transfers Bed to Chair Transfers independent Functional Movements Lifting and Carrying limited by 90 degree shoulder flexion in sitting, although full PROM B UE shoulders unable to carry in standing, holds objects in lap while in WC Wheelchair Management Type of Wheelchair manual, custom Special Equipment Roho cushion Assessment Details chooses to not use foot rests but holds legs up off of ground OP Gait Assessment Gait Gait Assistance Required: Contact Guard Assist Distance (Feet) 40 Comments Gait Comments adductor tone PT-OP-T Assessment and Plan Start: 01/03/25 10:34 Freq: Status: Active Protocol: Document 02/10/25 13:06 KW (Rec: 02/10/25 13:54 KW Laptop) Physical Therapy Assessment Rehab Potential Rehabilitation Potential Fair Goals Two Impairment Function in sitting Impairment . Short Term Goal (STG) improved function in sitting test from 28/56 to 45/56 - MET STG Duration 6 weeks One Impairment increased muscle tone impacting PROM of joints - Impairment . Short Term Goal (STG) patient demonstrates HEP techniques to manage tone - MET STG Duration 6 weeks Assessment Summary Assessment patient has been compliant with all PT visits, goals met for this round of PT. He would greatly benefit from an aquatic program, equine therapy or adaptive athletic program for interaction with peers. Physical Therapy Plan Therapeutic Interventions Therapeutic Interventions Balance Training,Home Exercise Program,Neuromuscular Re- education,Self-Care/Home Management,Therapeutic Activities,Therapeutic Exercises Next Visit Focus/Plan Next Note Type Discharge Summary
== END 2025-02-22 10:59 | disposition home or self-care (01) ==
LOC: PHYS 13:00
PROVIDERS: Family Provider Nurse Practitioner Family; PCP Nurse Practitioner Family; Referring Provider Student in an Organized Health Care Education/Training Program; Visit Provider Student in an Organized Health Care Education/Training Program
DX: G80.0 Spastic quadriplegic cerebral palsy (principal); R26.2 Difficulty in walking, not elsewhere classified
CPT/HCPCS: 97110; 97112; 97163; 97530